=== PATIENT | male | born 1975 | race Caucasian/White ===

== ENCOUNTER 2016-08-01 10:38 | Emergency (ER) | payer BC ==
[2016-08-01 13:16] VITALS: BP 137/75
--- NOTE | 2016-08-01 13:47 | UC ---
FLU HPI - HPI Summary HPI Summary: 41 year old male with complaints of sudden onset of body aches, fever,chills, sweats, cough, headache x 5 days. Today nausea, vomit x 1 and diarrhea x 1 - History of Current Complaint Chief Complaint: UCGeneralIllness Stated Complaint: CONGESTION/SORE THROAT/VOMITING Time Seen by Provider: 08/01/16 13:08 Hx Obtained From: Patient Onset/Duration: Sudden Onset, Lasting Days - 5, Still Present Severity Currently: Moderate Severity Initially: Severe Associated Signs & Symptoms: Positive: Fever, Myalgia, Cough, Sore Throat, Nasal Congestion, Headache, Vomiting, Diarrhea Related Hx: Possible Flu/Infectious Exposure - Risk Factors Influenza Risk Factors: Negative - Allergy/Home Medications Allergies/Adverse Reactions: Allergies Allergy/AdvReac Type Severity Reaction Status Date / Time Cefepime Allergy Severe Fever, Verified 08/01/16 13:17 MYALGIA Daptomycin [From Cubicin] Allergy Severe FEVER, Verified 08/01/16 13:17 MYALGIAS Linezolid [From Zyvox] Allergy Severe RASH, Verified 08/01/16 13:17 FEVER, SWEAT, TACHYCARDIA Home Medications: Home Medications [id number] [Mucinex Fast-Max Day/Nigh] 2 cap PO Q4H PRN [History Confirmed 08/01/16] PMH/Surg Hx/FS Hx/Imm Hx Previously Healthy: Yes Endocrine History Of: Denies: Diabetes, Thyroid Disease Cardiovascular History Of: Denies: Cardiac Disorders, Hypertension, Pacemaker/ICD Respiratory History Of: Denies: COPD, Asthma GI/ History Of: Denies: Ulcer - Surgical History Surgical History: Yes Surgery Procedure, Year, and Place: 10/2011, LEFT SHOULDER, [facility]. 03/28 LEFT SHOULDER. 2005, LEFT KNEE, [facility]. 2012 left shoulder - Family History Known Family History: Positive: Hypertension Negative: Diabetes - Social History Occupation: Employed Full-time Lives: With Family Alcohol Use: Weekly Alcohol Amount: WEEKENDS Substance Use Type: None Smoking Status (MU): Current Every Day Smoker Type: Smokeless Tobacco Amount Used/How Often: 3-4 plugs a day Have You Smoked in the Last Year: Yes Cessation Counseling: Patient Advised to Stop - Immunization History Most Recent Influenza Vaccination: February 2016 Review of Systems Constitutional: Fever, Chills Skin: Negative Eyes: Negative ENT: Sore Throat - after vomiting today, Ear Ache - when blowing his nose, Nasal Discharge, Other Respiratory: Cough Cardiovascular: Negative Gastrointestinal: Vomiting, Diarrhea Genitourinary: Negative Motor: Negative Neurovascular: Negative Musculoskeletal: Myalgia Neurological: Headache Psychological: Negative All Other Systems Reviewed And Are Negative: Yes Physical Exam Triage Information Reviewed: Yes Appearance: No Pain Distress, Well-Nourished, Ill-Appearing - mild Vital Signs: Initial Vital Signs Temp 99 F 08/01/16 13:10 Pulse 104 08/01/16 13:10 Resp 18 08/01/16 13:10 BP 137/75 08/01/16 13:10 Pulse Ox 97 08/01/16 13:10 Vital Signs Reviewed: Yes Eyes: Positive: Conjunctiva Clear. Negative: Discharge ENT: Positive: Pharynx normal, Nasal congestion, Nasal drainage - thick white, TM dull - bilateral fluid, Other: - mild maxillary sinus pain with palpation. Negative: Pharyngeal erythema, Tonsillar swelling Neck: Positive: Supple, Nontender, No Lymphadenopathy Respiratory: Positive: Lungs clear, Normal breath sounds. Negative: Crackles, Wheezing Cardiovascular: Positive: RRR, No Murmur Abdomen Description: Positive: Nontender, No Organomegaly, Soft. Negative: CVA Tenderness (R), CVA Tenderness (L), Distended, Guarding Musculoskeletal: Positive: Strength Intact, ROM Intact Neurological: Positive: Alert, Muscle Tone Normal Psychological: Positive: Age Appropriate Behavior - pleasant and cooperative Skin: Negative: rashes, breakdown Flu Course/Dx - Differential Dx/Diagnosis Differential Diagnosis/HQI/PQRI: Influenza, Other - sinusitis Provider Diagnoses: Influenza. Bilateral Serous Otitis. Sinusitis Discharge - Discharge Plan Condition: Stable Disposition: HOME Prescriptions: Amoxicillin/Clavulanate TAB* [Augmentin TAB 875*] 875 mg PO BID #20 tab Patient Education Materials: Influenza (ED), Serous Otitis Media (ED), Sinusitis (ED) Forms: *Work Release Additional Instructions: You have the flu - this may be the source of all your symptoms. Continue taking the over the counter medication that are giving you mild temporary relief of your symptoms. If you are not improving by Saturday or you become worse you may start the antibiotic for the suspected sinus infection
== END 2016-08-01 14:40 | disposition home or self-care (01) ==
LOC: UCCORT 10:38
DX: J11.1 Influenza due to unidentified influenza virus with other respiratory manifestations (principal); J32.0 Chronic maxillary sinusitis; H65.93 Unspecified nonsuppurative otitis media, bilateral; F17.220 Nicotine dependence, chewing tobacco, uncomplicated; Z71.6 Tobacco abuse counseling; Z88.1 Allergy status to other antibiotic agents
CPT/HCPCS: 99212; G0463

== ENCOUNTER 2016-12-16 18:21 | Emergency (ER) | payer BC ==
[2016-12-16 18:32] VITALS: BP 129/84
--- NOTE | 2016-12-16 18:38 | UC ---
Cardiac HPI - History of Current Complaint Chief Complaint: UCChestPain Stated Complaint: LEFT SHOULDER PAIN,SWEATING,TINGLING IN LEFT HAND Time Seen by Provider: 12/16/16 18:33 Hx Obtained From: Patient Onset/Duration: Sudden Onset - awoke with left shoulder pain and felt off with fever. Has sweats nausea and vomiting this morning., Still Present Initial Severity: Moderate Current Severity: Moderate Chest Pain Location: Left Anterior Character: Sharp/Stabbing - intermittant Aggravating: Nothing Alleviating: Nothing Associated Signs & Symptoms: Positive: Chest Pain, Tingling - in the left hand, Weakness, Diaphoresis, Nausea/Vomiting. Negative: SOB - Risk Factors Pulmonary Embolism Risk Factors: Negative Cardiac Risk Factors: Negative - Allergy/Home Medications Allergies/Adverse Reactions: Allergies Allergy/AdvReac Type Severity Reaction Status Date / Time Cefepime Allergy Severe Fever, Verified 12/16/16 18:33 MYALGIA Daptomycin [From Cubicin] Allergy Severe FEVER, Verified 12/16/16 18:33 MYALGIAS Linezolid [From Zyvox] Allergy Severe RASH, Verified 12/16/16 18:33 FEVER, SWEAT, TACHYCARDIA Home Medications: Home Medications Ibuprofen TAB* [Advil TAB*] 800 mg PO Q6H PRN 12/16/16 [History Confirmed ] PMH/Surg Hx/FS Hx/Imm Hx Previously Healthy: Yes - Surgical History Surgical History: Yes Surgery Procedure, Year, and Place: 10/2011, LEFT SHOULDER, [facility]. 03/28 LEFT SHOULDER. 2005, LEFT KNEE, [facility]. 2012 left shoulder - Family History Known Family History: Positive: Hypertension Negative: Cardiac Disease, Diabetes - Social History Occupation: Employed Full-time Lives: With Family Alcohol Use: Occasionally Alcohol Amount: WEEKENDS Substance Use Type: None Smoking Status (MU): Former Smoker Type: Smokeless Tobacco Amount Used/How Often: 3-4 plugs a day Length of Time of Smoking/Using Tobacco: 19 YRS Have You Smoked in the Last Year: Yes - Immunization History Most Recent Influenza Vaccination: February 2016 Review of Systems Constitutional: Fatigue Cardiovascular: Chest Pain Gastrointestinal: Vomiting, Nausea Musculoskeletal: Arthralgia - left shoulder Neurological: Paresthesia - left hand. All Other Systems Reviewed And Are Negative: Yes Physical Exam Triage Information Reviewed: Yes Appearance: Well-Appearing, No Pain Distress, Well-Nourished Vital Signs: Initial Vital Signs Temp 98 F 12/16/16 18:28 Pulse 81 12/16/16 18:28 Resp 17 12/16/16 18:28 BP 129/84 12/16/16 18:28 Pulse Ox 96 12/16/16 18:28 Vital Signs Reviewed: Yes Eyes: Positive: Conjunctiva Clear ENT: Positive: Pharynx normal, TMs normal Neck exam: Normal Respiratory: Positive: Chest non-tender, Lungs clear Cardiovascular Exam: Normal Abdomen Description: Positive: Nontender, No Organomegaly, Soft Bowel Sounds: Positive: Present Musculoskeletal: Positive: Strength Limited @ - left shoulder exernal rotation with mild pain. Neurological: Positive: Other: - positive tinels left wrist. Sensation normal to sharp on the left hand and the face. Psychological Exam: Normal Skin Exam: Normal - Differential Diagnoses - Chest Pain Differential Diagnosis/HQI/PQRI: ACS, Chest Wall, GI Disease - Clinical Impression Provider Diagnoses: Chest wall pain. viral syndrome. Left shoulder pain. Left carpal tunnel syndrome Discharge - Discharge Plan Condition: Stable Disposition: HOME Patient Education Materials: Chest Pain (ED), Paresthesia (ED), Viral Syndrome (ED) Referrals: Belkis Tejada NP [Primary Care Provider] - 4 Days (recheck the blood pressure.)
== END 2016-12-16 19:07 | disposition home or self-care (01) ==
LOC: UCCORT 18:21
DX: R07.89 Other chest pain (principal); B34.9 Viral infection, unspecified; M25.512 Pain in left shoulder; G56.02 Carpal tunnel syndrome, left upper limb
CPT/HCPCS: 93005; 99211; G0463

== ENCOUNTER 2017-09-23 17:00 | Inpatient (IN) | payer BC ==
[2017-09-23 18:50] LABS: ABS Basophils 0.1 10^3/ul (0-0.2); ABS Eosinophils 0.1 10^3/ul (0-0.6); ABS Lymphocytes 1.4 10^3/ul (1.0-4.8); ABS Monocytes 0.7 10^3/ul (0-0.8); ABS Neutrophils 12.3 10^3/ul (1.5-7.7); ABS Nucleated RBC 0 10^3/ul; Hematocrit 43 % (42-52); Hemoglobin 14.6 g/dl (14.0-18.0); Lymphocyte % 9.4 % (25-47); Mean Corpuscular HGB Conc 34 g/dl (31-36); Mean Corpuscular Hemoglobin 30 pg (27-31); Mean Corpuscular Volume 88 fL (80-94); Mean Platelet Volume 7.8 um3 (7.4-10.4); Nucleated Red Blood Cells % 0; Platelet Count 286 10^3/ul (150-450); Red Blood Count 4.88 10^6/ul (4.0-5.4); Red Cell Distribution Width 14 % (10.5-15); White Blood Count 14.6 10^3/ul (3.5-10.8)
[2017-09-23 19:07] LABS: EGFR Non-African American 84.7 (>60)
--- NOTE | 2017-09-23 19:18 | RAD ---
INDICATION: RIGHT groin and lower abdominal pain following lifting injury. COMPARISON: No relevant prior exams available on the [facility] for comparison. TECHNIQUE: Multidetector CT images were obtained from the lung bases to the ischial tuberosities. Evaluation of the viscera is limited without IV contrast. Multiplanar reformation. REPORT: Unremarkable visualized inferior thorax. The liver, gallbladder, pancreas, and spleen are unremarkable. Small splenule at the splenic hilum. Medially directed diverticulum at the second segment of the duodenum without suggestion of inflammatory change. Unremarkable jejunum, ileum, and retrocecal appendix. Mild colonic diverticulosis. Perienteric inflammatory change at the level of the proximal segment of the sigmoid colon with a few foci of extra enteric gas and small volume of free pelvic fluid including along the LEFT pelvic sidewall and in the dependent portion. Negative for significant hernias. Normal adrenal glands. Unremarkable kidneys. Negative for obstructive uropathy. Unremarkable nondilated ureters and partially distended urinary bladder. Symmetric seminal vesicles. Negative for lymphadenopathy. Normal diameter abdominal aorta and iliac arteries. Partially decompressed inferior vena cava indicating lower volume state. Negative for suspicious osseous lesions. IMPRESSION: The constellation of findings is most consistent with acute diverticulitis of the proximal sigmoid colon with evidence for perforation with small foci of extra enteric gas and small volume of free fluid. No loculated abscess collection evident. Reassessment after therapy suggested to assess for resolution.
[2017-09-23 19:31] LABS: Urine Appearance Clear; Urine Blood Negative (Negative); Urine Color Yellow; Urine Ketones Negative (Negative); Urine Protein Negative (Negative); Urine Specific Gravity 1.016 (1.010-1.030); Urine Urobilinogen Negative (Negative)
[2017-09-23] MEDS ORDERED: Ciprofloxacin 400MG IVPREMIX(* 400 MG/200 ML BAG IVPB ONE (20:10)
[2017-09-23] MEDS ORDERED: metroNIDAZOLE IV 500 MG/100ML* 500 MG/100 ML BAG IVPB ONE (20:10)
--- NOTE | 2017-09-23 20:28 | HP ---
H&P (Free Text) History and Physical: PCP: Angelica Tejada NP Date/Time: 09/23/20172019 CC: abdominal pain HPI: Mr Jolly is a 42YO male healthy male presents with onset of sharp RLQ pain radiating to R groin associated with F/C & sweats. Pain began shortly after cleaning under a sectional sofa, no heavy lifting. Afterwards, he felt the need to defecate, but couldn't. Straining to defecate increased pain and caused the radiation to R groin. Last BM was this afternoon, described as normal. Pain continued to increase and convinced him to come for evaluation. PMedHx negative Ambulatory Orders Ibuprofen TAB* [Advil TAB*] 800 mg PO Q6H PRN 12/16/16 Allergies cefepime Allergy (Verified 09/23/17 17:11) Fever daptomycin [From Cubicin] Allergy (Verified 09/23/17 17:11) Fever linezolid [From Zyvox] Allergy (Verified 09/23/17 17:11) Rash PSurgHx L shoulder surgery x3 L knee arthroscopy SocHx: 1 can smokeless tobacco every 2-3 days, 6-10 beers/weekend, denies recreational drugs; lives with & 2 children; works for [employer]; full code status FamHx: Mother & Father: alive & healthy; single brother: healthy: single sister : developmentally disabled ROS: as above, otherwise reviewed and all were negative vitals: Vital Signs Temp 36.8 C 09/23/17 17:11 Pulse 88 09/23/17 17:11 Resp 20 09/23/17 17:11 BP 130/84 09/23/17 17:11 Pulse Ox 94 09/23/17 17:11 Intake & Output 09/22/17 09/23/17 09/23/17 23:59 11:59 23:59 Weight 113.398 kg Constitutional: NAD, normally developed, obese white male HEENM: atraumatic; sclera/conjunctiva: anicteric/clear; hearing: clinically intact; oropharynx: clear, moist Neck: soft tissue: non-tender; thyroid: normal Pulmonary: clear to auscultation bilaterally, good aeration, no accessory muscle use CV: RR/RR, normal S1S2, no carotid bruit, no jugular venous distention, 2+ B DP/ PT, no edema Abdominal: soft, non-distended, non-tender, no rebound/guarding/rigidity, normoactive bowel sounds, no hepatosplenomegaly or masses, no costovertebral angle tenderness Musculoskeletal: general: grossly intact, no tenderness w/ palpation Integumental: normal appearance and texture of exposed skin Psychiatric orientation: AA&O to PPS affect: calm mood: pleasant eye contact: good content: reliable responses: timely insight: good Testing: Lab Results 09/23/17 09/23/17 09/23/17 Range/Units 18:28 18:28 18:28 WBC 14.6 H (3.5-10.8) 10^3/ul RBC 4.88 (4.0-5.4) 10^6/ul Hgb 14.6 (14.0-18.0) g/dl Hct 43 (42-52) % MCV 88 (80-94) fL MCH 30 (27-31) pg MCHC 34 (31-36) g/dl RDW 14 (10.5-15) % Plt Count 286 (150-450) 10^3/ul MPV 7.8 (7.4-10.4) um3 Neut % (Auto) 84.6 H (38-83) % Lymph % (Auto) 9.4 L (25-47) % [place] % (Auto) 4.6 (0-7) % Eos % (Auto) 1.0 (0-6) % Baso % (Auto) 0.4 (0-2) % Absolute Neuts (auto) 12.3 H (1.5-7.7) 10^3/ul Absolute Lymphs (auto) 1.4 (1.0-4.8) 10^3/ul Absolute Monos (auto) 0.7 (0-0.8) 10^3/ul Absolute Eos (auto) 0.1 (0-0.6) 10^3/ul Absolute Basos (auto) 0.1 (0-0.2) 10^3/ul Absolute Nucleated RBC 0 10^3/ul Nucleated RBC % 0 Sodium 137 L (139-145) mmol/L Potassium 4.0 (3.5-5.0) mmol/L Chloride 104 (101-111) mmol/L Carbon Dioxide 26 (22-32) mmol/L Anion Gap 7 (2-11) mmol/L BUN 14 (6-24) mg/dL Creatinine 0.98 (0.67-1.17) mg/dL Est GFR ( Amer) 108.9 (>60) Est GFR (Non-Af Amer) 84.7 (>60) BUN/Creatinine Ratio 14.3 (8-20) Glucose 121 H (70-100) mg/dL Lactic Acid 1.2 (0.5-2.0) mmol/L Calcium 9.1 (8.6-10.3) mg/dL Total Bilirubin 0.50 (0.2-1.0) mg/dL AST 20 (13-39) U/L ALT 35 (7-52) U/L Alkaline Phosphatase 64 (34-104) U/L C-Reactive Protein 4.58 (< 5.00) mg/L Total Protein 6.9 (6.4-8.9) g/dL Albumin 4.2 (3.2-5.2) g/dL Globulin 2.7 (2-4) g/dL Albumin/Globulin Ratio 1.6 (1-3) Lipase 11 (11.0-82.0) U/L Urine Color Urine Appearance Urine pH (5-9) Ur Specific [place] (1.010-1.030) Urine Protein (Negative) Urine Ketones (Negative) Urine Blood (Negative) Urine Nitrate (Negative) Urine Bilirubin (Negative) Urine Urobilinogen (Negative) Ur Leukocyte Esterase (Negative) Urine Glucose (Negative) 09/23/17 Range/Units 19:18 WBC (3.5-10.8) 10^3/ul RBC (4.0-5.4) 10^6/ul Hgb (14.0-18.0) g/dl Hct (42-52) % MCV (80-94) fL MCH (27-31) pg MCHC (31-36) g/dl RDW (10.5-15) % Plt Count (150-450) 10^3/ul MPV (7.4-10.4) um3 Neut % (Auto) (38-83) % Lymph % (Auto) (25-47) % [place] % (Auto) (0-7) % Eos % (Auto) (0-6) % Baso % (Auto) (0-2) % Absolute Neuts (auto) (1.5-7.7) 10^3/ul Absolute Lymphs (auto) (1.0-4.8) 10^3/ul Absolute Monos (auto) (0-0.8) 10^3/ul Absolute Eos (auto) (0-0.6) 10^3/ul Absolute Basos (auto) (0-0.2) 10^3/ul Absolute Nucleated RBC 10^3/ul Nucleated RBC % Sodium (139-145) mmol/L Potassium (3.5-5.0) mmol/L Chloride (101-111) mmol/L Carbon Dioxide (22-32) mmol/L Anion Gap (2-11) mmol/L BUN (6-24) mg/dL Creatinine (0.67-1.17) mg/dL Est GFR ( Amer) (>60) Est GFR (Non-Af Amer) (>60) BUN/Creatinine Ratio (8-20) Glucose (70-100) mg/dL Lactic Acid (0.5-2.0) mmol/L Calcium (8.6-10.3) mg/dL Total Bilirubin (0.2-1.0) mg/dL AST (13-39) U/L ALT (7-52) U/L Alkaline Phosphatase (34-104) U/L C-Reactive Protein (< 5.00) mg/L Total Protein (6.4-8.9) g/dL Albumin (3.2-5.2) g/dL Globulin (2-4) g/dL Albumin/Globulin Ratio (1-3) Lipase (11.0-82.0) U/L Urine Color Yellow Urine Appearance Clear Urine pH 5.0 (5-9) Ur Specific [place] 1.016 (1.010-1.030) Urine Protein Negative (Negative) Urine Ketones Negative (Negative) Urine Blood Negative (Negative) Urine Nitrate Negative (Negative) Urine Bilirubin Negative (Negative) Urine Urobilinogen Negative (Negative) Ur Leukocyte Esterase Negative (Negative) Urine Glucose Negative (Negative) CXR, personally reviewed: IMPRESSION: The constellation of findings is most consistent with acute diverticulitis of the proximal sigmoid colon with evidence for perforation with small foci of extra enteric gas and small volume of free fluid. No loculated abscess collection evident. Reassessment after therapy suggested to assess for resolution. Impression: 42M presenting with acute microperforated diverticulitis DIAGNOSIS & PLAN Primary acute microperforated diverticulitis : IVFs : IV ciprofloxacin & metronidazole : Cheli Amador MD surgery consulted by ED, will arrange follow up inpatient : Benito Blandon MD GI consulted by ED, will arrange follow up : blood CXs : pain control : supplemental oxygen : supportive care Admission Rational: inpatient for acute microperforated diverticulitis requiring IVFs & IV ABX in patient at risk for rapid clinical deterioration DVTp: SCDs Code Status: full HCP:
[2017-09-23] MEDS ORDERED: Acetaminophen TAB* 325 MG PO PRN (20:37)
[2017-09-23] MEDS ORDERED: LORazepam INJ* 2 MG/ML 1 ML VIAL IV PRN (20:38)
[2017-09-23] MEDS ORDERED: Albuterol 2.5 MG/3 ML NEB.SOL* (0.083%) INH PRN (20:38)
--- NOTE | 2017-09-23 20:58 | ED ---
Anish Butler Rebecca, scribed for Roosevelt Myrick MD on 09/23/17 at 1752 . Abdominal Pain/Male - HPI Summary HPI Summary: Pt is a 42 y/o M who presents to ED c/o RLQ pain. Sx began today at approximately 1430 while cleaning under his sectional. Pain is currently mild, ranked 3/10. When urinating, the pain radiated into the inguinal region. Sx aggravated by movement, palpation, and driving over bumps, alleviated by raising his RUE. 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 Denies nausea. Denies heavy lifting at the onset of pain. - History of Current Complaint Chief Complaint: EDAbdPain Stated Complaint: ABD PAIN Time Seen by Provider: 09/23/17 17:45 Hx Obtained From: Patient Onset/Duration: Lasting Hours, Still Present Severity Currently: Mild Pain Intensity: 3 Pain Scale Used: 0-10 Numeric Location: Discrete At: RLQ Radiates: Yes Radiates to: Inguinal - When urinating Aggravating Factor(s): Movement, Other: - Driving over bumps, palpation Alleviating Factor(s): Other: - Raising the RUE Associated Signs And Symptoms: Negative: Nausea - Allergies/Home Medications Allergies/Adverse Reactions: Allergies Allergy/AdvReac Type Severity Reaction Status Date / Time cefepime Allergy Fever Verified 09/23/17 17:11 daptomycin [From Cubicin] Allergy Fever Verified 09/23/17 17:11 linezolid [From Zyvox] Allergy Rash Verified 09/23/17 17:11 PMH/Surg Hx/FS Hx/Imm Hx Endocrine/Hematology History: Denies: Hx Diabetes, Hx Sickle Cell Disease, Hx Thyroid Disease Cardiovascular History: Denies: Hx Hypertension, Hx Pacemaker/ICD, Other Cardiovascular Problems/ Disorders Respiratory History: Denies: Hx Asthma, Hx Chronic Obstructive Pulmonary Disease (COPD), Other Respiratory Problems/Disorders GI History: Reports: Hx Gastroesophageal Reflux Disease - TAKES OTC MEDICATION Denies: Hx Ulcer History: Denies: Other Problems/Disorders Musculoskeletal History: Denies: Other Musculoskeletal History Sensory History: Denies: Hx Contacts or Glasses, Hx Hearing Aid Opthamlomology History: Denies: Hx Contacts or Glasses Neurological History: Denies: Other Neuro Impairments/Disorders Psychiatric History: Denies: Hx Panic Disorder - Surgical History Surgery Procedure, Year, and Place: 10/2011, LEFT SHOULDER, [facility]. 03/28 LEFT SHOULDER. 2005, LEFT KNEE, [facility]. 2012 left shoulder Hx Anesthesia Reactions: No Infectious Disease History: No Infectious Disease History: Denies: Hx Hepatitis, Hx Human Immunodeficiency Virus (HIV), Traveled Outside the [place] in Last 30 Days - Family History Known Family History: Positive: Hypertension Negative: Cardiac Disease, Diabetes - Social History Alcohol Use: Occasionally Alcohol Amount: WEEKENDS Substance Use Type: Reports: None Smoking Status (MU): Former Smoker Type: Smokeless Tobacco Amount Used/How Often: 3-4 plugs a day Length of Time of Smoking/Using Tobacco: 19 YRS Have You Smoked in the Last Year: Yes Review of Systems Negative: Fever Positive: Abdominal Pain. Negative: Nausea Positive: other - Difficulty urinating All Other Systems Reviewed And Are Negative: Yes Physical Exam - Summary Physical Exam Summary: Appearance: The patient is well-nourished in no acute distress and in no acute pain. Skin: The skin is warm and dry and skin color reflects adequate perfusion. HEENT: The head is normocephalic and atraumatic. The pupils are equal and reactive. The conjunctivae are clear and without drainage. Nares are patent and without drainage. Mouth reveals moist mucous membranes and the throat is without erythema and exudate. The external ears are intact. The ear canals are patent and without drainage. The tympanic membranes are intact. Neck: the neck is supple with full range of motion and non-tender. There are no carotid bruits. There is no neck vein distension. Respiratory: Chest is non-tender. Lungs are clear to auscultation and breath sounds are symmetrical and equal. Cardiovascular: Heart is regular rate and rhythm. There is no murmur or rub auscultated. There is no peripheral edema and pulses are symmetrical and equal. Abdomen: The abdomen is soft. He is tender in the RLQ with no tenderness in the right inguinal area or testicle. There are normal bowel sounds heard in all four quadrants and there is no organomegaly palpated. Negative straight leg test bilaterally. Musculoskeletal: There is no back tenderness noted. Extremities are non-tender with full range of motion. There is good capillary refill. There is no peripheral edema or calf tenderness elicited. Neurological: Patient is alert and oriented to person, place and time. The patient has symmetrical motor strength in all four extremities. Cranial nerves are grossly intact. Deep tendon reflexes are symmetrical and equal in all four extremities. Psychiatric: The patient has an appropriate affect and does not exhibit any anxiety or depression. Triage Information Reviewed: Yes Vital Signs On Initial Exam: Initial Vitals Temp Pulse Resp BP Pulse Ox 98.2 F 88 20 130/84 94 09/23/17 17:11 09/23/17 17:11 09/23/17 17:11 09/23/17 17:11 09/23/17 17:11 Vital Signs Reviewed: Yes Diagnostics - Vital Signs Vital Signs Temp Pulse Resp BP Pulse Ox 09/23/17 17:11 98.2 F 88 20 130/84 94 - Laboratory Lab Results: Lab Results 09/23/17 09/23/17 09/23/17 Range/Units 18:28 18:28 18:28 WBC 14.6 H (3.5-10.8) 10^3/ul RBC 4.88 (4.0-5.4) 10^6/ul Hgb 14.6 (14.0-18.0) g/dl Hct 43 (42-52) % MCV 88 (80-94) fL MCH 30 (27-31) pg MCHC 34 (31-36) g/dl RDW 14 (10.5-15) % Plt Count 286 (150-450) 10^3/ul MPV 7.8 (7.4-10.4) um3 Neut % (Auto) 84.6 H (38-83) % Lymph % (Auto) 9.4 L (25-47) % [place] % (Auto) 4.6 (0-7) % Eos % (Auto) 1.0 (0-6) % Baso % (Auto) 0.4 (0-2) % Absolute Neuts (auto) 12.3 H (1.5-7.7) 10^3/ul Absolute Lymphs (auto) 1.4 (1.0-4.8) 10^3/ul Absolute Monos (auto) 0.7 (0-0.8) 10^3/ul Absolute Eos (auto) 0.1 (0-0.6) 10^3/ul Absolute Basos (auto) 0.1 (0-0.2) 10^3/ul Absolute Nucleated RBC 0 10^3/ul Nucleated RBC % 0 Sodium 137 L (139-145) mmol/L Potassium 4.0 (3.5-5.0) mmol/L Chloride 104 (101-111) mmol/L Carbon Dioxide 26 (22-32) mmol/L Anion Gap 7 (2-11) mmol/L BUN 14 (6-24) mg/dL Creatinine 0.98 (0.67-1.17) mg/dL Est GFR ( Amer) 108.9 (>60) Est GFR (Non-Af Amer) 84.7 (>60) BUN/Creatinine Ratio 14.3 (8-20) Glucose 121 H (70-100) mg/dL Lactic Acid 1.2 (0.5-2.0) mmol/L Calcium 9.1 (8.6-10.3) mg/dL Total Bilirubin 0.50 (0.2-1.0) mg/dL AST 20 (13-39) U/L ALT 35 (7-52) U/L Alkaline Phosphatase 64 (34-104) U/L C-Reactive Protein 4.58 (< 5.00) mg/L Total Protein 6.9 (6.4-8.9) g/dL Albumin 4.2 (3.2-5.2) g/dL Globulin 2.7 (2-4) g/dL Albumin/Globulin Ratio 1.6 (1-3) Lipase 11 (11.0-82.0) U/L Urine Color Urine Appearance Urine pH (5-9) Ur Specific [place] (1.010-1.030) Urine Protein (Negative) Urine Ketones (Negative) Urine Blood (Negative) Urine Nitrate (Negative) Urine Bilirubin (Negative) Urine Urobilinogen (Negative) Ur Leukocyte Esterase (Negative) Urine Glucose (Negative) 09/23/17 Range/Units 19:18 WBC (3.5-10.8) 10^3/ul RBC (4.0-5.4) 10^6/ul Hgb (14.0-18.0) g/dl Hct (42-52) % MCV (80-94) fL MCH (27-31) pg MCHC (31-36) g/dl RDW (10.5-15) % Plt Count (150-450) 10^3/ul MPV (7.4-10.4) um3 Neut % (Auto) (38-83) % Lymph % (Auto) (25-47) % [place] % (Auto) (0-7) % Eos % (Auto) (0-6) % Baso % (Auto) (0-2) % Absolute Neuts (auto) (1.5-7.7) 10^3/ul Absolute Lymphs (auto) (1.0-4.8) 10^3/ul Absolute Monos (auto) (0-0.8) 10^3/ul Absolute Eos (auto) (0-0.6) 10^3/ul Absolute Basos (auto) (0-0.2) 10^3/ul Absolute Nucleated RBC 10^3/ul Nucleated RBC % Sodium (139-145) mmol/L Potassium (3.5-5.0) mmol/L Chloride (101-111) mmol/L Carbon Dioxide (22-32) mmol/L Anion Gap (2-11) mmol/L BUN (6-24) mg/dL Creatinine (0.67-1.17) mg/dL Est GFR ( Amer) (>60) Est GFR (Non-Af Amer) (>60) BUN/Creatinine Ratio (8-20) Glucose (70-100) mg/dL Lactic Acid (0.5-2.0) mmol/L Calcium (8.6-10.3) mg/dL Total Bilirubin (0.2-1.0) mg/dL AST (13-39) U/L ALT (7-52) U/L Alkaline Phosphatase (34-104) U/L C-Reactive Protein (< 5.00) mg/L Total Protein (6.4-8.9) g/dL Albumin (3.2-5.2) g/dL Globulin (2-4) g/dL Albumin/Globulin Ratio (1-3) Lipase (11.0-82.0) U/L Urine Color Yellow Urine Appearance Clear Urine pH 5.0 (5-9) Ur Specific [place] 1.016 (1.010-1.030) Urine Protein Negative (Negative) Urine Ketones Negative (Negative) Urine Blood Negative (Negative) Urine Nitrate Negative (Negative) Urine Bilirubin Negative (Negative) Urine Urobilinogen Negative (Negative) Ur Leukocyte Esterase Negative (Negative) Urine Glucose Negative (Negative) Result Diagrams: 09/23/17 18:28 09/23/17 18:28 Lab Statement: Any lab studies that have been ordered have been reviewed, and results considered in the medical decision making process. - CT CT Abd/Pel CT Interpretation Completed By: Radiologist - The constellation of findings is most consistent with acute diverticulitis of the proximal sigmoid colon with evidence for perforation with small foci of extra enteric gas and small volume of free fluid. No loculated abscess collection evident. Reassessment after therapy suggested to assess for resolution. ED physician reviewed this radiology report. Re-Evaluation - Re-Evaluation First Eval Re-Evaluation Time: 20:12 Comment: Patient continues to be in pain, though he refuses pain medication. Discussed admission, which he is alright with. Abdominal Pain Fem Course/Dx - Course Course Of Treatment: Surprisingly, Mr. Jolly was found to have diverticulitis with perforation. Dr. Amaro and Dr. Hickey both felt that he needed to be admitted for IV ABX and will consult for the hospitalist service. - Diagnoses Provider Diagnoses: Diverticulitis of colon with perforation - Provider Notifications Discussed Care Of Patient With: Evan Amaro Time Discussed With Above Provider: 20:08 Instructed by Provider To: Other - Advised admission to hospitalist services. Discussed care of pt with Dr. Zendejas at 2017 who advised a surgical consult. Discussed care of pt with Dr. Rom Amador at 2030 who will consult on thepatient, though he needs to be admitted for IV Abx. Discussed care of pt with Dr. Constantin Zendejas again at 2031 who accepts pt for admission. Discharge - Sign-Out/Discharge Documenting (check all that apply): Discharge - Admitted - Discharge Plan Condition: Stable Disposition: ADMITTED TO [facility] Referrals: Belkis Tejada, KARL [Primary Care Provider] - - Billing Disposition and Condition Condition: STABLE Disposition: [facility] [place] The documentation as recorded by the Anish borrero Rebecca accurately reflects the service I personally performed and the decisions made by me, Roosevelt Myrick MD.
[2017-09-23] MEDS: NS 0.9% 1000 ML* 1,000 ML IV SCH (21:13)
[2017-09-23] MEDS: HYDROmorphone INJ* 2 MG/ML CARPUJECT SYRINGE IV PRN ×2 (22:04→23:40)
[2017-09-23] MEDS: Ondansetron INJ* 2 MG/ML VIAL IV PRN (22:25)
--- NOTE | 2017-09-24 00:32 | CONS ---
CC: [facility]; Belkis Tejada NP * CONSULTATION REPORT: DATE OF CONSULT: 09/23/17 REFERRING PROVIDER: Ashkan Zendejas MD, hospitalist. REASON FOR CONSULTATION: Diverticulitis. HISTORY OF PRESENT ILLNESS: Mr. Sg Jolly is a healthy 42-year-old gentleman , who developed some suprapubic and left lower quadrant abdominal discomfort over the course of today. He had been moving some heavy objects later in the day and the pain became more severe and he felt this was related to the heavy lifting. He presented tot he emergency room. He did have some associated sweats. He felt somewhat distended with nausea, but no vomiting. There were no shakes or chills. He was seen in the emergency room today. He was noted to have an elevated white blood cell count of 14,000. He underwent a CAT scan of the abdomen and pelvis. I did review these images. These show what appears to be a proximal sigmoid diverticulitis with a few small bubbles of extraluminal air consistent with perforation. There was no abscess. There is a small amount of free fluid in the pelvis, but no remote free air or other acute abnormality. He has been admitted to the medical service and a surgical consultation was obtained. PAST MEDICAL HISTORY: Unremarkable. PAST SURGICAL HISTORY: Left shoulder surgery x3, left knee arthroscopy. MEDICATIONS: None. ALLERGIES: To CEFEPIME, DAPTOMYCIN, and ZYVOX. SOCIAL HISTORY: He uses 1 can of smokeless tobacco every 2 to 3 days. He drinks 6 to 10 beers on a weekend. He does not use recreational drugs. He lives with a and 2 young children. He works at the [employer]. REVIEW OF SYSTEMS: Cerebrovascular: He has had no dizziness or visual disturbances. Cardiovascular: No chest pain or shortness of breath. Pulmonary : No wheezing or hemoptysis. GI: As per above. He has never had a colonoscopy. : No urgency or hematuria. PHYSICAL EXAM: Temperature 99.1, pulse 95, blood pressure 134/65, respirations 16. In general, he is a well-developed, slightly overweight male, with normal attention to grooming. Face is slightly flushed. His lungs were clear to auscultation with normal respiratory effort. Heart was with regular rate and rhythm without murmurs, rubs or gallops. Abdomen is soft, nondistended. He has diminished bowel sounds throughout. There are no prior surgical incisions or hernias. He has tenderness in the suprapubic and left lower quadrant area. There is some voluntary guarding. There is no generalized discomfort or peritonitis. LABORATORY DATA: Included a white blood cell count of 14,000. Lactic acid 1.2. His C-reactive protein is 4.58. Electrolytes, BUN and creatinine were all within normal limits. IMPRESSION: Sigmoid diverticulitis with a all amount of extraluminal air consistent with acute perforation with the clinical history as described above. He has mildly elevated white blood cell count. He has tenderness in the left lower quadrant. He has no generalized peritoneal irritation and there are no indications for acute surgical intervention at this point. He has been started on ciprofloxacin and Flagyl and IV analgesia. He will need to be followed closely over the next 48 to 72 hours. If his symptoms worsen, I will consider a repeat CT scan to rule out abscess. I discussed all of this with him including the possibility of emergent surgical intervention if his clinical course deteriorates or he does not improve with IV antibiotics over the next several days. Thank you very much for this consultation. We will follow him closely with you. [id number]/[facility] #: [id number] HORACIO
[2017-09-24] MEDS: HYDROmorphone INJ* 2 MG/ML CARPUJECT SYRINGE IV PRN ×6 (04:33→21:47)
[2017-09-24] MEDS: NS 0.9% 1000 ML* 1,000 ML IV SCH ×2 (06:27→19:13)
[2017-09-24] MEDS: metroNIDAZOLE IV 500 MG/100ML* 500 MG/100 ML BAG IVPB SCH ×3 (06:27→22:33)
[2017-09-24 06:36] LABS: ABS Basophils 0 10^3/ul (0-0.2); ABS Eosinophils 0.1 10^3/ul (0-0.6); ABS Lymphocytes 1.2 10^3/ul (1.0-4.8); ABS Monocytes 0.7 10^3/ul (0-0.8); ABS Neutrophils 7.2 10^3/ul (1.5-7.7); ABS Nucleated RBC 0 10^3/ul; Eosinophil % 1.2 % (0-6); Hematocrit 38 % (42-52); Hemoglobin 13.1 g/dl (14.0-18.0); Lymphocyte % 12.9 % (25-47); Mean Corpuscular HGB Conc 34 g/dl (31-36); Mean Corpuscular Hemoglobin 30 pg (27-31); Mean Corpuscular Volume 88 fL (80-94); Mean Platelet Volume 7.5 um3 (7.4-10.4); Nucleated Red Blood Cells % 0; Platelet Count 254 10^3/ul (150-450); Red Blood Count 4.34 10^6/ul (4.0-5.4); Red Cell Distribution Width 14 % (10.5-15); White Blood Count 9.3 10^3/ul (3.5-10.8)
[2017-09-24 06:51] LABS: EGFR Non-African American 84.7 (>60)
[2017-09-24] MEDS: Ondansetron INJ* 2 MG/ML VIAL IV PRN (06:59)
[2017-09-24] MEDS ORDERED: Ciprofloxacin IV(*) 400 MG in D5W 250 ML BAG* 160 ML IVPB SCH (08:00)
[2017-09-24] MEDS: Pantoprazole IV* 40 MG IV SCH (08:53)
[2017-09-24] MEDS: Ciprofloxacin 400MG IVPREMIX(* 400 MG/200 ML BAG IVPB SCH ×2 (08:54→21:38)
--- NOTE | 2017-09-24 14:27 | PN ---
Progress Note - Progress Note Date of Service: 09/24/17 Note: Surgery Progress: S: HD #2; on Cipro/Flagyl. Better today (no pain when he is lying still; increases w/ movement). No N/v. Antonio sips H2O. Passing flatus; no BM. Current Medications Acetaminophen (Tylenol Tab*) 650 mg PO Q6H PRN PRN Reason: FEVER/PAIN Albuterol (Ventolin 2.5 Mg/3 Ml Neb.Lola*) 2.5 mg INH Q2H PRN PRN Reason: SOB/WHEEZING Hydromorphone HCl (Dilaudid Inj*) 1 mg IV Q2H PRN PRN Reason: PAIN Last Admin: 09/24/17 11:53 Dose: 1 mg Metronidazole/Sodium Chloride (Flagyl 500 Mg Ivpb*) 500 mg in 100 mls @ 100 mls /hr IVPB Q8H [facility] Last Admin: 09/24/17 06:27 Dose: 100 mls/hr Sodium Chloride (Ns 0.9% 1000 Ml*) 1,000 mls @ 125 mls/hr IV PER RATE [facility] Last Admin: 09/24/17 06:27 Dose: 125 mls/hr Ciprofloxacin/Dextrose (Cipro 400 Mg Ivpremix(*)) 400 mg in 200 mls @ 200 mls/ hr IVPB Q12H [facility] Last Admin: 09/24/17 08:54 Dose: 200 mls/hr Lorazepam (Ativan Inj*) 0.5 mg IV BEDTIME PRN PRN Reason: SLEEP Ondansetron HCl (Zofran Inj*) 4 mg IV Q6H PRN PRN Reason: NAUSEA Last Admin: 09/24/17 06:59 Dose: 4 mg Pantoprazole Sodium (Protonix Iv*) 40 mg IV DAILY [facility] Last Admin: 09/24/17 08:53 Dose: 40 mg O: Tmax 99.5; other VSS Intake and Output Last 24 Hours 09/22/17 09/23/17 09/24/17 09/25/17 06:59 06:59 06:59 06:59 Intake Total 640 0 Output Total 1300 350 Balance -660 -350 Weight 257 lb Intake: IV Fluids 200 Oral 440 0 Output: Urine 1300 350 Other: # Bowel Movements 0 # Voids 0 Gen: WN, obese; NAD Heart: reg Lungs: clear Abd: +BS; obese; distended; soft; moderate tenderness throughout hypogastrium; some firmness, but no guarding or rigidity. Labs: Laboratory Tests 09/23/17 09/24/17 09/24/17 18:28 06:15 06:15 WBC 14.6 H 9.3 Neut % (Auto) 84.6 H 77.7 Sodium 136 L Potassium 4.2 Glucose 134 H A: sigmoid diverticulitls w/ micro perf, improving P: cont IV abx; would allow clears ad catalina. We will cont to follow; no surgical indications at the present.
[2017-09-24] MEDS ORDERED: Metoclopramide IV* 5 MG/ML 2 ML VIAL IV PRN (17:42)
[2017-09-24] MEDS: Al Hydrox/Mg Hydrox/Simet LIQ* 30 ML UDC PO PRN (18:17)
--- NOTE | 2017-09-24 18:33 | PN ---
Subjective Date of Service: 09/24/17 Interval History: Patient seen and examined. Patient states abd pain is improving, but remains nauseous and bloated and tender. Passing flatus, no vomiting. Objective Active Medications: Acetaminophen (Tylenol Tab*) 650 mg PO Q6H PRN PRN Reason: FEVER/PAIN Al Hydrox/Mg Hydrox/Simethicone (Maalox Plus*) 30 ml PO Q4H PRN PRN Reason: DYSPEPSIA Last Admin: 09/24/17 18:17 Dose: 30 ml Albuterol (Ventolin 2.5 Mg/3 Ml Neb.Lola*) 2.5 mg INH Q2H PRN PRN Reason: SOB/WHEEZING Hydromorphone HCl (Dilaudid Inj*) 1 mg IV Q2H PRN PRN Reason: PAIN Last Admin: 09/24/17 18:17 Dose: 1 mg Metronidazole/Sodium Chloride (Flagyl 500 Mg Ivpb*) 500 mg in 100 mls @ 100 mls /hr IVPB Q8H [facility] Last Admin: 09/24/17 14:35 Dose: 100 mls/hr Sodium Chloride (Ns 0.9% 1000 Ml*) 1,000 mls @ 125 mls/hr IV PER RATE [facility] Last Admin: 09/24/17 06:27 Dose: 125 mls/hr Ciprofloxacin/Dextrose (Cipro 400 Mg Ivpremix(*)) 400 mg in 200 mls @ 200 mls/ hr IVPB Q12H [facility] Last Admin: 09/24/17 08:54 Dose: 200 mls/hr Lorazepam (Ativan Inj*) 0.5 mg IV BEDTIME PRN PRN Reason: SLEEP Metoclopramide HCl (Reglan Iv*) 10 mg IV Q6H PRN PRN Reason: NAUSEA/VOMITING Last Admin: 09/24/17 18:27 Dose: 10 mg Ondansetron HCl (Zofran Inj*) 4 mg IV Q6H PRN PRN Reason: NAUSEA Last Admin: 09/24/17 06:59 Dose: 4 mg Pantoprazole Sodium (Protonix Iv*) 40 mg IV DAILY [facility] Last Admin: 09/24/17 08:53 Dose: 40 mg Vital Signs - 8 hr 09/24/17 09/24/17 09/24/17 11:53 14:32 14:43 Respiratory 16 16 16 Rate 09/24/17 09/24/17 18:17 18:26 Respiratory 16 16 Rate Oxygen Devices in Use Now: None Appearance: Alert, NAD Ears/Nose/Mouth/Throat: NL Teeth, Lips, Gums Neck: Trachea Midline Respiratory: Symmetrical Chest Expansion and Respiratory Effort, Clear to Auscultation Cardiovascular: NL Sounds; No Murmurs; No JVD, RRR Abdominal: - - diffusely tender across all quads, hypoactive BS Extremities: No Edema, No Clubbing, Cyanosis Neurological: Alert and Oriented x 3, NL Sensation, NL Gait Nutrition: Taking PO's, - - advanced to clears and tolerating Result Diagrams: 09/24/17 06:15 09/24/17 06:15 Additional Lab and Data: Lab Results 09/23/17 09/23/17 09/23/17 Range/Units 18:28 18:28 18:28 WBC 14.6 H (3.5-10.8) 10^3/ul RBC 4.88 (4.0-5.4) 10^6/ul Hgb 14.6 (14.0-18.0) g/dl Hct 43 (42-52) % MCV 88 (80-94) fL MCH 30 (27-31) pg MCHC 34 (31-36) g/dl RDW 14 (10.5-15) % Plt Count 286 (150-450) 10^3/ul MPV 7.8 (7.4-10.4) um3 Neut % (Auto) 84.6 H (38-83) % Lymph % (Auto) 9.4 L (25-47) % [place] % (Auto) 4.6 (0-7) % Eos % (Auto) 1.0 (0-6) % Baso % (Auto) 0.4 (0-2) % Absolute Neuts (auto) 12.3 H (1.5-7.7) 10^3/ul Absolute Lymphs (auto) 1.4 (1.0-4.8) 10^3/ul Absolute Monos (auto) 0.7 (0-0.8) 10^3/ul Absolute Eos (auto) 0.1 (0-0.6) 10^3/ul Absolute Basos (auto) 0.1 (0-0.2) 10^3/ul Absolute Nucleated RBC 0 10^3/ul Nucleated RBC % 0 Sodium 137 L (139-145) mmol/L Potassium 4.0 (3.5-5.0) mmol/L Chloride 104 (101-111) mmol/L Carbon Dioxide 26 (22-32) mmol/L Anion Gap 7 (2-11) mmol/L BUN 14 (6-24) mg/dL Creatinine 0.98 (0.67-1.17) mg/dL Est GFR ( Amer) 108.9 (>60) Est GFR (Non-Af Amer) 84.7 (>60) BUN/Creatinine Ratio 14.3 (8-20) Glucose 121 H (70-100) mg/dL Lactic Acid 1.2 (0.5-2.0) mmol/L Calcium 9.1 (8.6-10.3) mg/dL Total Bilirubin 0.50 (0.2-1.0) mg/dL AST 20 (13-39) U/L ALT 35 (7-52) U/L Alkaline Phosphatase 64 (34-104) U/L C-Reactive Protein 4.58 (< 5.00) mg/L Total Protein 6.9 (6.4-8.9) g/dL Albumin 4.2 (3.2-5.2) g/dL Globulin 2.7 (2-4) g/dL Albumin/Globulin Ratio 1.6 (1-3) Lipase 11 (11.0-82.0) U/L Urine Color Urine Appearance Urine pH (5-9) Ur Specific [place] (1.010-1.030) Urine Protein (Negative) Urine Ketones (Negative) Urine Blood (Negative) Urine Nitrate (Negative) Urine Bilirubin (Negative) Urine Urobilinogen (Negative) Ur Leukocyte Esterase (Negative) Urine Glucose (Negative) 09/23/17 Range/Units 19:18 WBC (3.5-10.8) 10^3/ul RBC (4.0-5.4) 10^6/ul Hgb (14.0-18.0) g/dl Hct (42-52) % MCV (80-94) fL MCH (27-31) pg MCHC (31-36) g/dl RDW (10.5-15) % Plt Count (150-450) 10^3/ul MPV (7.4-10.4) um3 Neut % (Auto) (38-83) % Lymph % (Auto) (25-47) % [place] % (Auto) (0-7) % Eos % (Auto) (0-6) % Baso % (Auto) (0-2) % Absolute Neuts (auto) (1.5-7.7) 10^3/ul Absolute Lymphs (auto) (1.0-4.8) 10^3/ul Absolute Monos (auto) (0-0.8) 10^3/ul Absolute Eos (auto) (0-0.6) 10^3/ul Absolute Basos (auto) (0-0.2) 10^3/ul Absolute Nucleated RBC 10^3/ul Nucleated RBC % Sodium (139-145) mmol/L Potassium (3.5-5.0) mmol/L Chloride (101-111) mmol/L Carbon Dioxide (22-32) mmol/L Anion Gap (2-11) mmol/L BUN (6-24) mg/dL Creatinine (0.67-1.17) mg/dL Est GFR ( Amer) (>60) Est GFR (Non-Af Amer) (>60) BUN/Creatinine Ratio (8-20) Glucose (70-100) mg/dL Lactic Acid (0.5-2.0) mmol/L Calcium (8.6-10.3) mg/dL Total Bilirubin (0.2-1.0) mg/dL AST (13-39) U/L ALT (7-52) U/L Alkaline Phosphatase (34-104) U/L C-Reactive Protein (< 5.00) mg/L Total Protein (6.4-8.9) g/dL Albumin (3.2-5.2) g/dL Globulin (2-4) g/dL Albumin/Globulin Ratio (1-3) Lipase (11.0-82.0) U/L Urine Color Yellow Urine Appearance Clear Urine pH 5.0 (5-9) Ur Specific [place] 1.016 (1.010-1.030) Urine Protein Negative (Negative) Urine Ketones Negative (Negative) Urine Blood Negative (Negative) Urine Nitrate Negative (Negative) Urine Bilirubin Negative (Negative) Urine Urobilinogen Negative (Negative) Ur Leukocyte Esterase Negative (Negative) Urine Glucose Negative (Negative) Diagnostic Imaging: Patient Name: JAIDA PATTERSON Medical Record#: [id number] Ordering Physician: Roosevelt Myrick MD Acct.#: [id number] : 1975 Age: 42 Sex: M Location: EMERGENCY DEPARTMENT Exam Date: 09/23/171810 ADM Status: REG ER Order Information: CT ABD/PEL W/O Accession Number: [id number] CPT: 63954 INDICATION: RIGHT groin and lower abdominal pain following lifting injury. COMPARISON: No relevant prior exams available on the [facility] PACS for comparison. TECHNIQUE: Multidetector CT images were obtained from the lung bases to the ischial tuberosities. Evaluation of the viscera is limited without IV contrast. Multiplanar reformation. REPORT: Unremarkable visualized inferior thorax. The liver, gallbladder, pancreas, and spleen are unremarkable. Small splenule at the splenic hilum. Medially directed diverticulum at the second segment of the duodenum without suggestion of inflammatory change. Unremarkable jejunum, ileum, and retrocecal appendix. Mild colonic diverticulosis. Perienteric inflammatory change at the level of the proximal segment of the sigmoid colon with a few foci of extra enteric gas and small volume of free pelvic fluid including along the LEFT pelvic sidewall and in the dependent portion. Negative for significant hernias. Normal adrenal glands. Unremarkable kidneys. Negative for obstructive uropathy. Unremarkable nondilated ureters and partially distended urinary bladder. Symmetric seminal vesicles. Negative for lymphadenopathy. Normal diameter abdominal aorta and iliac arteries. Partially decompressed inferior vena cava indicating lower volume state. Negative for suspicious osseous lesions. IMPRESSION: The constellation of findings is most consistent with acute diverticulitis of the proximal sigmoid colon with evidence for perforation with small foci of extra enteric gas and small volume of free fluid. No loculated abscess collection evident. Reassessment after therapy suggested to assess for resolution. <Electronically signed by Rex Valverde MD in [place]> 09/23/171914 Dictated By: Rex Valverde MD Dictated Date/Time: 09/23/171914 Transcribed Date/Time: 09/23/171907 Copy to: CC:Belkis Tejada [employer]; Roosevelt Myrick MD Imaging - [facility] Imaging - [facility] Imaging - [facility] [address] 1 of Assess/Plan/Problems-Billing Assessment: This is a 42 year old male patient that presents with abdominal pain, found to have diverticulitis with microperforation, being treated conservatively with bowel rest, fluids and pain control. - Patient Problems (1) Diverticulitis of intestine with perforation without abscess Code(s): K57.80 - DVTRCLI OF INTEST, PART UNSP, W PERF AND ABSCESS W/O BLEED SNOMED Code(s): 362646910 Comment: - Continue cipro and flagyl - Surgery following - Pain control - Tolerating clears - Add reglan and alternate with zofran PRN (2) Anxiety Code(s): F41.9 - ANXIETY DISORDER, UNSPECIFIED SNOMED Code(s): 71894743 Comment: - ativan as needed (3) Asthma Code(s): J45.909 - UNSPECIFIED ASTHMA, UNCOMPLICATED SNOMED Code(s): 907999978 Comment: - Nebs PRN (4) DVT prophylaxis Code(s): KZA9050 - SNOMED Code(s): 316807845 Comment: - Low risk, ambulatory - SCDs while in bed (5) Full code status Code(s): Z78.9 - OTHER SPECIFIED HEALTH STATUS SNOMED Code(s): 871158116 Status and Disposition: Remain inpatient until clear by surgery
[2017-09-25] MEDS: HYDROmorphone INJ* 2 MG/ML CARPUJECT SYRINGE IV PRN ×6 (00:53→21:32)
[2017-09-25] MEDS: NS 0.9% 1000 ML* 1,000 ML IV SCH ×3 (05:29→21:32)
[2017-09-25] MEDS: metroNIDAZOLE IV 500 MG/100ML* 500 MG/100 ML BAG IVPB SCH ×2 (06:01→13:59)
[2017-09-25] MEDS: Pantoprazole IV* 40 MG IV SCH (09:51)
[2017-09-25] MEDS: Ciprofloxacin 400MG IVPREMIX(* 400 MG/200 ML BAG IVPB SCH ×2 (09:51→21:48)
[2017-09-25] MEDS: Al Hydrox/Mg Hydrox/Simet LIQ* 30 ML UDC PO PRN (13:14)
--- NOTE | 2017-09-25 14:02 | PN ---
Progress Note - Progress Note Date of Service: 09/25/17 Note: Surgery Progress: S: Still having pain, though better than yesterday. Antonio clears. Passing flatus as well as 2 loose stools and one small formed BM. Pain seems to come and go. O: Vital Signs - 8 hr 09/25/17 09/25/17 09/25/17 07:33 07:36 11:31 Temperature 98.1 F 98.3 F Pulse Rate 79 81 Respiratory 18 18 20 Rate Blood Pressure 111/72 118/73 (mmHg) O2 Sat by Pulse 94 95 Oximetry 09/25/17 09/25/17 09/25/17 11:37 13:14 13:27 Temperature Pulse Rate Respiratory 16 18 18 Rate Blood Pressure (mmHg) O2 Sat by Pulse Oximetry Intake and Output Last 24 Hours 09/23/17 09/24/17 09/25/17 09/26/17 06:59 06:59 06:59 06:59 Intake Total 640 2860 320 Output Total 1300 350 Balance -660 2510 320 Weight 257 lb Intake: IV Fluids 200 1480 NS (0.9%) 1480 Oral 440 1380 320 Output: Urine 1300 350 Other: Estimated Void Large # Bowel Movements 0 0 # Voids 0 1 Gen: NAD Heart: reg Lungs: clear Abd: obese; mildly distended; soft; still moderate lower abd tenderness, but improved vs yesterday. Upper abd nontender. A: diverticulitis w/ micro perf, appears to be improving P: cont abx; would consider adv diet (full liqs, then d/c home on low residue), oral pain meds w/ poss d/c 09/26 if meets criteria. Would have him f/u w/ Dr. Amadro in 7-10 d. Will d/w Dr. Pratt
--- NOTE | 2017-09-25 16:14 | PN ---
Subjective Date of Service: 09/25/17 Interval History: patient seen and examined. Pain now localizing to LLQ rather than across abdomen. Denies n/v/d, denies fevers or chills. Tolerating CLD without issue. Objective Active Medications: Acetaminophen (Tylenol Tab*) 650 mg PO Q6H PRN PRN Reason: FEVER/PAIN Al Hydrox/Mg Hydrox/Simethicone (Maalox Plus*) 30 ml PO Q4H PRN PRN Reason: DYSPEPSIA Last Admin: 09/25/17 13:14 Dose: 30 ml Albuterol (Ventolin 2.5 Mg/3 Ml Neb.Lola*) 2.5 mg INH Q2H PRN PRN Reason: SOB/WHEEZING Hydromorphone HCl (Dilaudid Inj*) 1 mg IV Q2H PRN PRN Reason: PAIN Last Admin: 09/25/17 13:27 Dose: 1 mg Metronidazole/Sodium Chloride (Flagyl 500 Mg Ivpb*) 500 mg in 100 mls @ 100 mls /hr IVPB Q8H [facility] Last Admin: 09/25/17 13:59 Dose: 100 mls/hr Sodium Chloride (Ns 0.9% 1000 Ml*) 1,000 mls @ 125 mls/hr IV PER RATE [facility] Last Admin: 09/25/17 05:29 Dose: 125 mls/hr Ciprofloxacin/Dextrose (Cipro 400 Mg Ivpremix(*)) 400 mg in 200 mls @ 200 mls/ hr IVPB Q12H [facility] Last Admin: 09/25/17 09:51 Dose: 200 mls/hr Lorazepam (Ativan Inj*) 0.5 mg IV BEDTIME PRN PRN Reason: SLEEP Metoclopramide HCl (Reglan Iv*) 10 mg IV Q6H PRN PRN Reason: NAUSEA/VOMITING Last Admin: 09/24/17 18:27 Dose: 10 mg Ondansetron HCl (Zofran Inj*) 4 mg IV Q6H PRN PRN Reason: NAUSEA Last Admin: 09/24/17 06:59 Dose: 4 mg Pantoprazole Sodium (Protonix Iv*) 40 mg IV DAILY [facility] Last Admin: 09/25/17 09:51 Dose: 40 mg Vital Signs - 8 hr 09/25/17 09/25/17 09/25/17 11:31 11:37 13:14 Temperature 98.3 F Pulse Rate 81 Respiratory 20 16 18 Rate Blood Pressure 118/73 (mmHg) O2 Sat by Pulse 95 Oximetry 09/25/17 09/25/17 13:27 15:25 Temperature Pulse Rate Respiratory 18 18 Rate Blood Pressure (mmHg) O2 Sat by Pulse Oximetry Oxygen Devices in Use Now: None Eyes: No Scleral Icterus, PERRLA Ears/Nose/Mouth/Throat: Mucous Membranes Moist Neck: Trachea Midline Respiratory: Symmetrical Chest Expansion and Respiratory Effort, Clear to Auscultation Cardiovascular: NL Sounds; No Murmurs; No JVD, RRR Abdominal: - - tender LLQ, pos BS, 2 loose BMs and one formed Extremities: No Edema Neurological: Alert and Oriented x 3, NL Sensation, NL Gait Nutrition: Taking PO's, - - CLD Result Diagrams: 09/24/17 06:15 09/24/17 06:15 Additional Lab and Data: Lab Results 09/23/17 09/23/17 09/23/17 Range/Units 18:28 18:28 18:28 WBC 14.6 H (3.5-10.8) 10^3/ul RBC 4.88 (4.0-5.4) 10^6/ul Hgb 14.6 (14.0-18.0) g/dl Hct 43 (42-52) % MCV 88 (80-94) fL MCH 30 (27-31) pg MCHC 34 (31-36) g/dl RDW 14 (10.5-15) % Plt Count 286 (150-450) 10^3/ul MPV 7.8 (7.4-10.4) um3 Neut % (Auto) 84.6 H (38-83) % Lymph % (Auto) 9.4 L (25-47) % [place] % (Auto) 4.6 (0-7) % Eos % (Auto) 1.0 (0-6) % Baso % (Auto) 0.4 (0-2) % Absolute Neuts (auto) 12.3 H (1.5-7.7) 10^3/ul Absolute Lymphs (auto) 1.4 (1.0-4.8) 10^3/ul Absolute Monos (auto) 0.7 (0-0.8) 10^3/ul Absolute Eos (auto) 0.1 (0-0.6) 10^3/ul Absolute Basos (auto) 0.1 (0-0.2) 10^3/ul Absolute Nucleated RBC 0 10^3/ul Nucleated RBC % 0 Sodium 137 L (139-145) mmol/L Potassium 4.0 (3.5-5.0) mmol/L Chloride 104 (101-111) mmol/L Carbon Dioxide 26 (22-32) mmol/L Anion Gap 7 (2-11) mmol/L BUN 14 (6-24) mg/dL Creatinine 0.98 (0.67-1.17) mg/dL Est GFR ( Amer) 108.9 (>60) Est GFR (Non-Af Amer) 84.7 (>60) BUN/Creatinine Ratio 14.3 (8-20) Glucose 121 H (70-100) mg/dL Lactic Acid 1.2 (0.5-2.0) mmol/L Calcium 9.1 (8.6-10.3) mg/dL Total Bilirubin 0.50 (0.2-1.0) mg/dL AST 20 (13-39) U/L ALT 35 (7-52) U/L Alkaline Phosphatase 64 (34-104) U/L C-Reactive Protein 4.58 (< 5.00) mg/L Total Protein 6.9 (6.4-8.9) g/dL Albumin 4.2 (3.2-5.2) g/dL Globulin 2.7 (2-4) g/dL Albumin/Globulin Ratio 1.6 (1-3) Lipase 11 (11.0-82.0) U/L Urine Color Urine Appearance Urine pH (5-9) Ur Specific [place] (1.010-1.030) Urine Protein (Negative) Urine Ketones (Negative) Urine Blood (Negative) Urine Nitrate (Negative) Urine Bilirubin (Negative) Urine Urobilinogen (Negative) Ur Leukocyte Esterase (Negative) Urine Glucose (Negative) 09/23/17 Range/Units 19:18 WBC (3.5-10.8) 10^3/ul RBC (4.0-5.4) 10^6/ul Hgb (14.0-18.0) g/dl Hct (42-52) % MCV (80-94) fL MCH (27-31) pg MCHC (31-36) g/dl RDW (10.5-15) % Plt Count (150-450) 10^3/ul MPV (7.4-10.4) um3 Neut % (Auto) (38-83) % Lymph % (Auto) (25-47) % [place] % (Auto) (0-7) % Eos % (Auto) (0-6) % Baso % (Auto) (0-2) % Absolute Neuts (auto) (1.5-7.7) 10^3/ul Absolute Lymphs (auto) (1.0-4.8) 10^3/ul Absolute Monos (auto) (0-0.8) 10^3/ul Absolute Eos (auto) (0-0.6) 10^3/ul Absolute Basos (auto) (0-0.2) 10^3/ul Absolute Nucleated RBC 10^3/ul Nucleated RBC % Sodium (139-145) mmol/L Potassium (3.5-5.0) mmol/L Chloride (101-111) mmol/L Carbon Dioxide (22-32) mmol/L Anion Gap (2-11) mmol/L BUN (6-24) mg/dL Creatinine (0.67-1.17) mg/dL Est GFR ( Amer) (>60) Est GFR (Non-Af Amer) (>60) BUN/Creatinine Ratio (8-20) Glucose (70-100) mg/dL Lactic Acid (0.5-2.0) mmol/L Calcium (8.6-10.3) mg/dL Total Bilirubin (0.2-1.0) mg/dL AST (13-39) U/L ALT (7-52) U/L Alkaline Phosphatase (34-104) U/L C-Reactive Protein (< 5.00) mg/L Total Protein (6.4-8.9) g/dL Albumin (3.2-5.2) g/dL Globulin (2-4) g/dL Albumin/Globulin Ratio (1-3) Lipase (11.0-82.0) U/L Urine Color Yellow Urine Appearance Clear Urine pH 5.0 (5-9) Ur Specific [place] 1.016 (1.010-1.030) Urine Protein Negative (Negative) Urine Ketones Negative (Negative) Urine Blood Negative (Negative) Urine Nitrate Negative (Negative) Urine Bilirubin Negative (Negative) Urine Urobilinogen Negative (Negative) Ur Leukocyte Esterase Negative (Negative) Urine Glucose Negative (Negative) Microbiology and Other Data: Microbiology 09/23/17 22:00 Aerobic Blood Culture - Preliminary Blood Venous No Growth Day 1 Anaerobic Blood Culture - Preliminary No Growth Day 1 09/23/17 22:00 Aerobic Blood Culture - Preliminary Blood Venous No Growth Day 1 Anaerobic Blood Culture - Preliminary No Growth Day 1 Diagnostic Imaging: Patient Name: JAIDA PATTERSON Medical Record#: [id number] Ordering Physician: Roosevelt Myrick MD Acct.#: [id number] : 1975 Age: 42 Sex: M Location: EMERGENCY DEPARTMENT Exam Date: 09/23/171810 ADM Status: REG ER Order Information: CT ABD/PEL W/O Accession Number: [id number] CPT: 21633 INDICATION: RIGHT groin and lower abdominal pain following lifting injury. COMPARISON: No relevant prior exams available on the [facility] [place] for comparison. TECHNIQUE: Multidetector CT images were obtained from the lung bases to the ischial tuberosities. Evaluation of the viscera is limited without IV contrast. Multiplanar reformation. REPORT: Unremarkable visualized inferior thorax. The liver, gallbladder, pancreas, and spleen are unremarkable. Small splenule at the splenic hilum. Medially directed diverticulum at the second segment of the duodenum without suggestion of inflammatory change. Unremarkable jejunum, ileum, and retrocecal appendix. Mild colonic diverticulosis. Perienteric inflammatory change at the level of the proximal segment of the sigmoid colon with a few foci of extra enteric gas and small volume of free pelvic fluid including along the LEFT pelvic sidewall and in the dependent portion. Negative for significant hernias. Normal adrenal glands. Unremarkable kidneys. Negative for obstructive uropathy. Unremarkable nondilated ureters and partially distended urinary bladder. Symmetric seminal vesicles. Negative for lymphadenopathy. Normal diameter abdominal aorta and iliac arteries. Partially decompressed inferior vena cava indicating lower volume state. Negative for suspicious osseous lesions. IMPRESSION: The constellation of findings is most consistent with acute diverticulitis of the proximal sigmoid colon with evidence for perforation with small foci of extra enteric gas and small volume of free fluid. No loculated abscess collection evident. Reassessment after therapy suggested to assess for resolution. <Electronically signed by Rex Valverde MD in [place]> 09/23/171914 Dictated By: Rex Valverde MD Dictated Date/Time: 09/23/171914 Transcribed Date/Time: 09/23/171907 Copy to: CC:Belkis Tejada [employer]; Roosevelt Myrick MD Imaging - [facility] Imaging - [facility] Imaging - [facility] [address] [place] [address] Avenue 1 of Assess/Plan/Problems-Billing Assessment: This is a 42 year old male patient that presents with abdominal pain, found to have diverticulitis with microperforation, being treated conservatively with bowel rest, fluids and pain control. - Patient Problems (1) Diverticulitis of intestine with perforation without abscess Code(s): K57.80 - DVTRCLI OF INTEST, PART UNSP, W PERF AND ABSCESS W/O BLEED SNOMED Code(s): 290553330 Comment: - Continue cipro and flagyl - Surgery following - Pain control - Tolerating clears, will advance to full liquid tonight as pain is improving and he is afebrile - Add reglan and alternate with zofran PRN (2) Anxiety Code(s): F41.9 - ANXIETY DISORDER, UNSPECIFIED SNOMED Code(s): 15576747 Comment: - ativan as needed (3) Asthma Code(s): J45.909 - UNSPECIFIED ASTHMA, UNCOMPLICATED SNOMED Code(s): 235099375 Comment: - Nebs PRN (4) DVT prophylaxis Code(s): JVA4439 - SNOMED Code(s): 834823694 Comment: - Low risk, ambulatory - SCDs while in bed (5) Full code status Code(s): Z78.9 - OTHER SPECIFIED HEALTH STATUS SNOMED Code(s): 008885871 Status and Disposition: Remain inpatient, may be clear for DC tomorrow if tolerates FLD tonight and pain continues to improve/resolve.
[2017-09-26] MEDS: HYDROmorphone INJ* 2 MG/ML CARPUJECT SYRINGE IV PRN (01:03)
[2017-09-26] MEDS: metroNIDAZOLE IV 500 MG/100ML* 500 MG/100 ML BAG IVPB SCH (01:04)
--- NOTE | 2017-09-26 04:00 | CONS ---
CC: Torie Tejada NP; Dr. Zendejas; Bekah Fry NP * GASTROENTEROLOGY CONSULTATION NOTE: DATE OF CONSULT: 09/25/17 DATE OF ADMISSION: 09/23/17 HOSPITAL PROVIDERS: Bekah Fry NP; Ashkan Zendejas MD. PRIMARY CARE PROVIDER: Torie Mittal NP REASON FOR CONSULT: Acute sigmoid diverticulitis with microperforation. HISTORY OF PRESENT ILLNESS: Patient is a 42-year-old healthy male, who presented initially to [facility] a few days ago with complaints of right lower quadrant pain. CT of the abdomen revealed acute diverticulitis of the proximal sigmoid colon with evidence of perforation with small foci of extra -enteric gas and small volume of free fluid. No loculated abscess was seen at that time. Surgery was consulted for further evaluation and possible treatment. Since admission, patient has been improving significantly with conservative therapy. He was advanced to a full liquid diet today with minimal abdominal pain. Denies fevers or chills. He is currently on IV ciprofloxacin and metronidazole along with IV fluids. Gastroenterology was consulted for further recommendations and outpatient work-up. Patient denies prior history of diverticulitis. He admits to normal bowel movement daily and good appetite at home. Denies rectal bleeding. Denies family history of colorectal carcinoma. He has no previous history of colonoscopy and upper endoscopy. Denies GERD symptoms, dysphagia, odynophagia, hematemesis. PAST MEDICAL HISTORY: Denies. PAST SURGICAL HISTORY: Left shoulder repair x3, left knee arthroscopy. ALLERGIES: CEFEPIME, DAPTOMYCIN, cause fever; LINEZOLID, causes rash. FAMILY HISTORY: Mother and father are alive and healthy. Brother is healthy. Sister is developmentally disabled. SOCIAL HISTORY: Admits to tobacco use every 2 to 3 days. 6 to 10 beers on the weekend. Denies recreational drug use. He is with 2 children. REVIEW OF SYSTEMS: Review of systems on a 14-point scale have been reviewed. All pertinent positives and negatives have been noted above in the HPI. PHYSICAL EXAM: Temperature 98.3, pulse 80, respirations 16, O2 is 97 on room air, blood pressure 117/66. Generally, the patient is alert and oriented x3, in no acute distress. HEENT: Normocephalic, atraumatic. Extraocular muscles intact. Anicteric sclerae bilaterally. Neck is supple. Cardiovascular Exam: Regular rate and rhythm. Pulmonary: Clear to auscultation bilaterally. Abdominal Exam: Obese, positive bowel sounds, soft, mild tenderness to palpation in the left lower quadrant. No rebound, guarding, or rigidity. Extremities: No clubbing, cyanosis, or edema. Warm to touch. DIAGNOSTIC STUDIES/LAB DATA: WBC is 9.3, hemoglobin 13.1, hematocrit 38, platelets 254. Sodium 136, potassium 4.2, chloride 106, CO2 25, anion gap 5, BUN 12, creatinine 0.98. Lactic acid 1.2, calcium 8.4, total bilirubin 0.50, AST 20, ALT 35. Alkaline phosphatase 64, CRP 4.58. Total protein 6.9, albumin 4.2, globulin 2.7, lipase 11. UA is clear. ASSESSMENT AND PLAN: Sg is a pleasant 42-year-old male who presented to [facility] with acute sigmoid diverticulitis with microperforation. Surgery was consulted for further evaluation and treatment. During his hospital course he had been on bowel rest and managed conservatively. He was slowly advanced to a full liquid diet today and it tolerating his diet without abdominal pain. He is also ambulating without difficulty. He is currently on metronidazole and ciprofloxacin IV. Gastroenterology was consulted for further evaluation once acute symptoms have resolved. Patient has not had a colonoscopy in the past. He admits to a good appetite and stable weight. He has regular bowel movements without rectal bleeding. He will need a colonoscopy in approximately 6 to 8 weeks once he heals from his episode of diverticulitis to rule out inflammatory bowel disease versus colorectal carcinoma. He denies family history of colorectal carcinoma or inflammatory bowel disease. Risks and benefits were discussed and he is agreeable to this. Anticipated discharge date is tomorrow. He will follow up in approximately 4 to 6 weeks to schedule his colonoscopy. We will follow up with the patient as needed while he is in the hospital, otherwise we will see him as an outpatient for his followup visit. Please call us with any questions or concerns. Thank you, Dr. Zendejas and Bekah Fry for allowing us to participate in the care of your patient. If you should have any further questions or concerns, please do not hesitate to contact us. [id number]/[facility] #: [id number] HORACIO
[2017-09-26] MEDS: Pantoprazole IV* 40 MG IV SCH (08:50)
[2017-09-26] MEDS: Ciprofloxacin 400MG IVPREMIX(* 400 MG/200 ML BAG IVPB SCH (08:50)
[2017-09-26] MEDS: NS 0.9% 1000 ML* 1,000 ML IV SCH (08:58)
[2017-09-26] MEDS ORDERED: metroNIDAZOLE IV 500 MG/100ML* 500 MG/100 ML BAG IVPB SCH (09:00)
[2017-09-26 09:48] LABS: ABS Basophils 0 10^3/ul (0-0.2); ABS Eosinophils 0.2 10^3/ul (0-0.6); ABS Lymphocytes 0.8 10^3/ul (1.0-4.8); ABS Monocytes 0.6 10^3/ul (0-0.8); ABS Neutrophils 6.8 10^3/ul (1.5-7.7); ABS Nucleated RBC 0 10^3/ul; Eosinophil % 2.2 % (0-6); Hematocrit 40 % (42-52); Hemoglobin 13.5 g/dl (14.0-18.0); Lymphocyte % 9.1 % (25-47); Mean Corpuscular HGB Conc 34 g/dl (31-36); Mean Corpuscular Hemoglobin 30 pg (27-31); Mean Corpuscular Volume 89 fL (80-94); Mean Platelet Volume 7.6 um3 (7.4-10.4); Nucleated Red Blood Cells % 0.1; Platelet Count 287 10^3/ul (150-450); Red Blood Count 4.47 10^6/ul (4.0-5.4); Red Cell Distribution Width 14 % (10.5-15); White Blood Count 8.3 10^3/ul (3.5-10.8)
--- NOTE | 2017-09-26 12:54 | PN ---
Progress Note - Progress Note Date of Service: 09/26/17 Note: Surgery Progress: S: Less pain (has not req'd analgesic since 0100). Antonio full liq diet. Continues to pass flatus. Small BM. O: Intake and Output Last 24 Hours 09/24/17 09/25/17 09/26/17 09/27/17 06:59 06:59 06:59 06:59 Intake Total 640 2860 4417 0 Output Total 1300 350 Balance -660 2510 4417 0 Weight 257 lb Intake: IV Fluids 200 1480 1507 ABX - FLAGYL 757 NS (0.9%) 1480 750 IVPB 500 ABX - CIPROFLOXACIN 400 ABX - FLAGYL 100 Oral 440 1380 2410 0 Output: Urine 1300 350 Other: Estimated Void Large Large # Bowel Movements 0 0 0 # Voids 0 1 1 Gen: appears comfortable Heart: reg Lungs: clear ant Abd: +BS; still mildly distended; soft; still w/ moderate suprapubic and LLQ tenderness, similar to 09/25. Remainder nontender. A: likely acute diverticulitis w/ micro perf, improving P: was seen by GI w/ tentative plans for colonoscopy after 6-8 wks; he is likely to do fine w/ po abx (Cipro & Flagyl x 2addl wks) and transition to low fiber/low residue diet over the next few days (discussed w/ pt and ). He only needs to be seen by our office prn if worsening or persistent sx; likewise , f/u CT only if not following an expected clinical course of improvement. Patient has our contact info.
[2017-09-26 13:10] VITALS: BP 105/66
--- NOTE | 2017-09-26 21:52 | DS ---
CC: Belkis Tejada NP * DISCHARGE SUMMARY: DATE OF ADMISSION: 09/23/17 DATE OF DISCHARGE: 09/26/17 PRIMARY CARE PHYSICIAN: Belkis Tejada NP ATTENDING PHYSICIAN FOR THIS ADMISSION: Dr. Juan Pérez. MY ATTENDING FOR TODAY: Dr. Aiyana Santo.* (DICTATED BY CHACHO SOLANO NP) HOSPITAL COURSE: This is a very pleasant 42-year-old male patient, who presented to the emergency department with very sharp right lower quadrant pain radiating to the right groin. The patient also reported subjective fevers and chills with night sweats. The patient stated that he felt like he had to have a bowel movement, but could not and was quite constipated and again had additional radiating pain. The patient had CAT scan and was shown to have diverticulitis of the sigmoid colon with microperforation. The patient was admitted with IV fluids, started on Cipro and Flagyl IV as well and pain control. He was seen by Surgery, Dr. Rom Amador, who opted to continue the patient on conservative management with bowel rest, fluids, and pain control. The patient's diet was advanced to clears, and then to full liquids yesterday. He has tolerated well. He has not needed any pain medication since last night. The patient states that his pain has decreased from an 8/10 to about a 2/10, localized now to the left lower quadrant. He has had no further nausea, vomiting , chills, or fevers, nor any leukocytosis. The patient was seen by Surgery and also by GI. Surgery cleared the patient today for discharge with outpatient followup with GI, Dr. Jocelyn Mix, consulted on the patient, states that he needs to have colonoscopy in the next 6 to 8 weeks. The patient was stabilized for discharge today, 09/26/17. PHYSICAL EXAMINATION: Vital Signs: Today, blood pressure 105/66, heart rate 76 , respiratory rate 16, temperature 98.2, saturating at 95% on room air. HEENT: The patient is atraumatic, normocephalic. PERRLA with nonicteric sclerae. Neck is supple, nontender. No JVD noted. No thyromegaly appreciated. Cardiovascular: S1, S2 present with no murmurs, gallops or rubs noted. Rate and rhythm are regular. Lungs are clear bilaterally to auscultation with no wheezing, rhonchi or rales. Abdomen is soft, mildly tender, primarily localized to the left lower quadrant. No rebound or guarding noted. He has hyperactive bowel sounds in all 4 quadrants. He has had 3 loose stools and 1 formed stool in the last 24 hours. : Deferred. Musculoskeletal: There is no clubbing, no cyanosis, and no edema. He has +2 distal pulses palpable. He has a steady gait. Neurologic: Grossly intact with no focal deficits. Psychiatric : He is cooperative and appropriate. LABORATORY DATA/DIAGNOSTIC STUDIES: Today, CBC reveals WBC is 8.3, RBC is 4.47 , hemoglobin 13.5, hematocrit 40, platelets 287. Chemistry from 09/24/17, sodium 136, potassium 4.2, chloride 106, CO2 25, BUN 12, creatinine 0.98. GFR is 84.7, glucose 134, lactic acid 1.2. Liver function all within normal limits. Urinalysis with no acute infectious process. CAT scan was dated . CT of the abdomen and pelvis show constellation of findings most consistent with acute diverticulitis of the proximal sigmoid colon with evidence of perforation with a small foci of extra-enteric gas and small volume of free fluid. No loculated abscess collection is evident and also shows a partially distended urinary bladder. DISCHARGE DIAGNOSES: 1. Acute diverticulitis with microperforation. 2. History of anxiety. 3. History of asthma, not in exacerbation. MEDICATIONS AT THE TIME OF DISCHARGE: Include: 1. Cipro 500 mg q.12 hours x14 days. 2. Flagyl 500 mg q.8 hours also x14 days. 3. Ibuprofen as needed for pain. DISCHARGE DISPOSITION: The patient was discharged to home in stable condition in care of his . All questions were answered. The patient was instructed to follow up with Dr. Mix to schedule his colonoscopy in the next 6 to 8 weeks, Dr. Rom Amador as needed. If symptoms do not resolve, he may need repeat imaging and Dr. Tejada, his primary care provider ,as needed. Again, the patient was discharged in stable condition. Diet instructions as per Surgery. Progressing diet as tolerated. Currently, on full liquids to soft and tolerating well. He can start to transition to low - residue diet over the next 3 to 4 days, and then diet as tolerated. CHACHO SOLANO, HISTOTECHNOLOGIST [id number]/[facility] #: [id number] KALEIDA HEALTHEvie
== END 2017-09-26 16:15 | disposition home or self-care (01) | DRG 244 ==
LOC: ED 17:00 → MED 20:22
PROVIDERS: ADMIT Hospitalist; ATTEND Internal Medicine
DX: K57.20 Diverticulitis of large intestine with perforation and abscess without bleeding (principal); F41.9 Anxiety disorder, unspecified; J45.909 Unspecified asthma, uncomplicated; F17.290 Nicotine dependence, other tobacco product, uncomplicated; Z79.1 Long term (current) use of non-steroidal anti-inflammatories (NSAID); Z88.8 Allergy status to other drugs, medicaments and biological substances; Z81.0 Family history of intellectual disabilities
CPT/HCPCS: 36415; 74176; 80048; 80053; 81003; 83605; 83690; 85025; 86140; 87040; 99285; A9270-GY; J0744; J1170; J2405; J2765; J3490

== ENCOUNTER 2018-01-28 09:58 | Emergency (ER) | payer BC ==
[2018-01-28 10:46] VITALS: BP 122/78
--- NOTE | 2018-01-28 11:12 | UC ---
Back Pain HPI - HPI Summary HPI Summary: mid lower back pain x 2 days injury to his lower back as he went 4 wheeling and lift something heavy 2 days ago pain is on his lower back more on right that left , mild radiation to his right leg no fever , no chills, no numbness of lower ext. no urinary sx - History of Current Complaint Chief Complaint: UCBackPain Stated Complaint: LOWER BACK PAIN Time Seen by Provider: 01/28/18 10:40 Hx Obtained From: Patient Onset/Duration: Sudden Onset, Lasting Days - 2, Still Present Timing: Constant Severity Initially: Moderate Severity Currently: Moderate Pain Intensity: 7 Back Pain: Is Discrete @ - mid lower back Character: Aching, Throbbing Aggravating Factor(s): Movement, Lifting, Bending, Walking, Cough Alleviating Factor(s): Rest Associated Signs And Symptoms: Positive: Pain with Weight Bearing. Negative: Swelling, Redness, Bruising, Weakness, Numbness, Tingling, Abdominal Pain, Flank Pain, Bladder Incontinence, Weight Loss - Allergies/Home Medications Allergies/Adverse Reactions: Allergies Allergy/AdvReac Type Severity Reaction Status Date / Time linezolid [From Zyvox] Allergy Mild Rash Verified 01/28/18 10:41 Home Medications: Home Medications Naproxen Sodium [Aleve] 440 mg PO BID PRN 01/28/18 [History Confirmed 01/28/18] PMH/Surg Hx/FS Hx/Imm Hx GI/ History: Diverticulitis - Surgical History Surgical History: Yes Surgery Procedure, Year, and Place: 10/2011, LEFT [place]OULDER[place] [facility] [place]. 2005, LEFT KNEE, [facility] [place]. 2012 left shoulder - Family History Known Family History: Positive: Hypertension Negative: Cardiac Disease, Diabetes - Social History Alcohol Use: Occasionally Alcohol Amount: WEEKENDS Substance Use Type: None Smoking Status (MU): Current Every Day Smoker Type: Smokeless Tobacco Amount Used/How Often: 3-4 plugs a day Length of Time of Smoking/Using Tobacco: 19 YRS Have You Smoked in the Last Year: Yes - Immunization History Most Recent Influenza Vaccination: February 2016 Most Recent Pneumonia Vaccination: never Review of Systems Constitutional: Negative Skin: Negative Eyes: Negative ENT: Negative Respiratory: Negative Cardiovascular: Negative Is Patient Immunocompromised?: No All Other Systems Reviewed And Are Negative: Yes Physical Exam Triage Information Reviewed: Yes Appearance: Well-Appearing, Well-Nourished, Pain Distress Vital Signs: Initial Vital Signs Temp 97.4 F 01/28/18 10:42 Pulse 98 01/28/18 10:42 Resp 16 01/28/18 10:42 BP 122/78 01/28/18 10:42 Pulse Ox 97 01/28/18 10:42 Vital Signs Reviewed: Yes Eyes: Positive: Conjunctiva Clear ENT: Positive: Normal ENT inspection, Hearing grossly normal, Pharynx normal Neck exam: Normal Neck: Positive: Supple, Nontender, No Lymphadenopathy Respiratory: Positive: Chest non-tender, Lungs clear, Normal breath sounds, No respiratory distress Cardiovascular: Positive: RRR, No Murmur, Pulses Normal Neurological: Positive: Other: - lower back : no swelling, no erythema, mild diffuse tenderness, no muscle spasm pain with flexion and extension , DTR + 2 b /l lower ext Back Pain Course/Dx - Differential Dx/Diagnosis Provider Diagnoses: lower back strain Discharge - Sign-Out/Discharge Documenting (check all that apply): Patient Departure - Discharge Plan Condition: Stable Disposition: HOME Prescriptions: Naproxen [Naproxen 500 mg tab] 500 mg PO BID #20 tablet Patient Education Materials: Low Back Strain (ED) Forms: *Work Release Referrals: Belkis Tejada NP [Primary Care Provider] - 7 Days - Billing Disposition and Condition Condition: STABLE Disposition: Home
== END 2018-01-28 11:10 | disposition home or self-care (01) ==
LOC: UCCORT 09:58
DX: S39.012A Strain of muscle, fascia and tendon of lower back, initial encounter (principal); X50.0XXA Overexertion from strenuous movement or load, initial encounter; Y93.89 Activity, other specified; Y92.9 Unspecified place or not applicable; Z88.3 Allergy status to other anti-infective agents; Z88.6 Allergy status to analgesic agent; F17.210 Nicotine dependence, cigarettes, uncomplicated
CPT/HCPCS: 99212; G0463

== ENCOUNTER 2018-01-30 04:49 | Inpatient (IN) | payer BC ==
[2018-01-30] MEDS ORDERED: Morphine INJ* 2 MG/ML 1 ML SYRINGE (TWO MG - NEW SYRINGE VERSION) IV ONE (05:30)
[2018-01-30] MEDS ORDERED: Metoclopramide IV* 5 MG/ML 2 ML VIAL IV SLOW PU ONE (05:36)
[2018-01-30] MEDS ORDERED: NS 0.9% 1000 ML* 1,000 ML IV ONE (05:36)
--- NOTE | 2018-01-30 05:46 | ED ---
Abdominal Pain/Male - HPI Summary HPI Summary: This is adair Callahan documenting for attending Les Barkley MD. This patient is a 42 year old M presenting to [facility] with a chief complaint of abd pain since 1900 last night. The patient rates the pain 6/10 in severity. Patient reports diarrhea, difficultly urinating, and nausea. Patient denies fever. Hx diverticulitis. - History of Current Complaint Chief Complaint: EDAbdPain Stated Complaint: ABD PAIN Time Seen by Provider: 01/30/18 05:17 Hx Obtained From: Patient Onset/Duration: Lasting Days - 1, Still Present Timing: Constant Severity Initially: Moderate Severity Currently: Moderate Pain Intensity: 6 Pain Scale Used: 0-10 Numeric Location: Diffuse Radiates: No Associated Signs And Symptoms: Positive: Other - nausea - Allergies/Home Medications Allergies/Adverse Reactions: Allergies Allergy/AdvReac Type Severity Reaction Status Date / Time linezolid [From Zyvox] Allergy Mild Rash Verified 01/30/18 04:53 PMH/Surg Hx/FS Hx/Imm Hx Endocrine/Hematology History: Denies: Hx Diabetes, Hx Sickle Cell Disease, Hx Thyroid Disease Cardiovascular History: Denies: Hx Hypertension, Hx Pacemaker/ICD, Other Cardiovascular Problems/ Disorders Respiratory History: Denies: Hx Asthma, Hx Chronic Obstructive Pulmonary Disease (COPD), Other Respiratory Problems/Disorders GI History: Reports: Hx Gastroesophageal Reflux Disease - TAKES OTC MEDICATION Denies: Hx Ulcer History: Denies: Other Problems/Disorders Musculoskeletal History: Denies: Other Musculoskeletal History Sensory History: Denies: Hx Contacts or Glasses, Hx Hearing Aid Opthamlomology History: Denies: Hx Contacts or Glasses Neurological History: Denies: Other Neuro Impairments/Disorders Psychiatric History: Denies: Hx Panic Disorder - Surgical History Surgery Procedure, Year, and Place: 10/2011, LEFT SHOULDER, [facility] [place]. 03/28 LEFT SHOULDER. 2005, LEFT KNEE, [facility] [place]. 2012 left shoulder Hx Anesthesia Reactions: No Infectious Disease History: No Infectious Disease History: Denies: Hx Hepatitis, Hx Human Immunodeficiency Virus (HIV), Traveled Outside the in Last 30 Days - Family History Known Family History: Positive: Hypertension Negative: Cardiac Disease, Diabetes - Social History Alcohol Use: Weekly Alcohol Amount: WEEKENDS Substance Use Type: Reports: None Smoking Status (MU): Former Smoker Type: Smokeless Tobacco Amount Used/How Often: 3-4 plugs a day Length of Time of Smoking/Using Tobacco: 19 YRS Have You Smoked in the Last Year: Yes Review of Systems Negative: Fever Positive: Abdominal Pain, Diarrhea, Nausea Positive: dysuria All Other Systems Reviewed And Are Negative: Yes Physical Exam - Summary Physical Exam Summary: VITAL SIGNS: Reviewed. GENERAL: Patient is a well-developed and nourished male who is lying comfortable in the stretcher. Patient is not in any acute respiratory distress. HEAD AND FACE: No signs of trauma. No ecchymosis, hematomas or skull depressions. No sinus tenderness. EYES: PERRLA, EOMI x 2, No injected conjunctiva, no nystagmus. EARS: Hearing grossly intact. Ear canals and tympanic membranes are within normal limits. MOUTH: Oropharynx within normal limits. NECK: Supple, trachea is midline, no adenopathy, no JVD, no carotid bruit, no c- spine tenderness, neck with full ROM. CHEST: Symmetric, no tenderness at palpation LUNGS: Clear to auscultation bilaterally. No wheezing or crackles. CVS: Regular rate and rhythm, S1 and S2 present, no murmurs or gallops appreciated. ABDOMEN: Soft, TTP in RLQ. distention. No rebound no guarding, and no masses palpated. Bowel sounds are normal. EXTREMITIES: FROM in all major joints, no edema, no cyanosis or clubbing. NEURO: Alert and oriented x 3. No acute neurological deficits. Speech is normal and follows commands. SKIN: Dry and warm Triage Information Reviewed: Yes Vital Signs On Initial Exam: Initial Vitals Temp Pulse Resp BP Pulse Ox 97.4 F 114 18 127/76 97 01/30/18 04:51 01/30/18 04:51 01/30/18 04:51 01/30/18 04:51 01/30/18 04:51 Vital Signs Reviewed: Yes Diagnostics - Vital Signs Vital Signs Temp Pulse Resp BP Pulse Ox 01/30/18 05:12 101 97 01/30/18 05:10 104 123/76 94 01/30/18 04:51 97.4 F 114 18 127/76 97 - Laboratory Result Diagrams: 01/30/18 06:01 01/30/18 06:01 Lab Statement: Any lab studies that have been ordered have been reviewed, and results considered in the medical decision making process. - CT A/P CT CT Interpretation: Positive (See Comments) - IMPRESSION: Acute diverticulitis of the sigmoid colon with evidence for microperforation. No perienteric loculated abscess collection or resulting bowel obstruction. The site of diverticulitis is different than the site of diverticulitis on the September 23, 2017 exam. Follow-up after therapy warranted to assess for resolution. CT Interpretation Completed By: Radiologist - Report has been reviewed by provider and radiologist. Re-Evaluation - Re-Evaluation First Eval Re-Evaluation Time: 08:28 Change: Unchanged - Provider discussed results with pt. He reports pain is a 5/ 10; he asked for more pain meds. Abdominal Pain Fem Course/Dx - Course Assessment/Plan: This patient will be signed out to Dr. Gomez awaiting CT results - Diagnoses Provider Diagnoses: Diverticulitis Discharge - Sign-Out/Discharge Documenting (check all that apply): Sign-Out Patient Signing out patient TO: Jair Gomez - awaiting CT Results - Discharge Plan Condition: Stable Disposition: ADMITTED TO [facility]
[2018-01-30 06:22] LABS: ABS Basophils 0.1 10^3/ul (0-0.2); ABS Eosinophils 0 10^3/ul (0-0.6); ABS Lymphocytes 0.9 10^3/ul (1.0-4.8); ABS Monocytes 0.9 10^3/ul (0-0.8); ABS Neutrophils 14.9 10^3/ul (1.5-7.7); ABS Nucleated RBC 0 10^3/ul; Eosinophil % 0.3 % (0-6); Hematocrit 43 % (42-52); Hemoglobin 14.5 g/dl (14.0-18.0); Lymphocyte % 5.5 % (25-47); Mean Corpuscular HGB Conc 33 g/dl (31-36); Mean Corpuscular Hemoglobin 29 pg (27-31); Mean Corpuscular Volume 87 fL (80-94); Mean Platelet Volume 7.9 um3 (7.4-10.4); Nucleated Red Blood Cells % 0; Platelet Count 282 10^3/ul (150-450); Red Blood Count 4.97 10^6/ul (4.00-5.40); Red Cell Distribution Width 14 % (10.5-15); White Blood Count 16.9 10^3/ul (3.5-10.8)
[2018-01-30 06:26] LABS: Urine Appearance Clear; Urine Blood 1+ (Negative); Urine Color Yellow; Urine Ketones Negative (Negative); Urine Protein Negative (Negative); Urine Red Blood Cell 1+(3-5/hpf) (Absent); Urine Specific Gravity 1.024 (1.010-1.030); Urine Urobilinogen Negative (Negative); Urine White Blood Cell Absent (Absent)
[2018-01-30 06:32] LABS: INR 0.94 (0.77-1.02)
[2018-01-30 06:45] LABS: EGFR Non-African American 84.7 (>60)
[2018-01-30] MEDS ORDERED: Iohexol 300* (CONTRAST) 10 ML SDV IV ONE (06:56)
--- NOTE | 2018-01-30 07:56 | RAD ---
INDICATION: RIGHT lower quadrant pain and nausea since yesterday. History of diverticulitis. COMPARISON: September 23, 2017 CT TECHNIQUE: Multidetector CT images were obtained from the lung bases to the ischial tuberosities with 150 mL Omnipaque 300 IV contrast. No oral contrast administered. Multiplanar reformation. REPORT: VISUALIZED INFERIOR THORAX: Minimal linear atelectasis at the RIGHT lung base. LIVER / GALLBLADDER / PANCREAS / SPLEEN: No CT abnormality of the liver, gallbladder, pancreas, or spleen. Small splenule at the splenic hilum. ALIMENTARY TRACT: Medially projecting diverticulum at the second segment of the duodenum without evidence for acute inflammatory change. Negative for CT abnormality of the small bowel or infra cecal appendix. Moderate diverticulosis of the colon primarily involving the sigmoid colon with moderate perienteric inflammatory change along the antimesenteric margin corresponding with an inflamed diverticulum with evidence for microperforation with a few perienteric foci of free air and trace free pelvic fluid. Negative for a loculated perienteric abscess collection. Negative for hernias. MESENTERIC: Mesenteric lymph nodes are visualized measuring up to 0.8 cm short axis without significant interval change. ADRENAL / GENITOURINARY: Normal adrenal glands. Symmetric nephrograms and pyelograms. A few tiny hypodense cortical lesions of the RIGHT kidney are noted most likely representing benign cysts although too small to accurately characterize. Negative for suspicious renal lesions or hydronephrosis. Unremarkable nondilated ureters and urinary bladder. Symmetric seminal vesicles. RETROPERITONEAL: Negative for lymphadenopathy. VASCULAR: Normal diameter abdominal aorta and iliac arteries with only minimal atherosclerotic plaque. Physiologic distention of the IVC. BONES: Negative for suspicious osseous lesions. SOFT TISSUE: Unremarkable. IMPRESSION: #. Acute diverticulitis of the sigmoid colon with evidence for microperforation. No perienteric loculated abscess collection or resulting bowel obstruction. The site of diverticulitis is different than the site of diverticulitis on the September 23, 2017 exam. Follow-up after therapy warranted to assess for resolution.
[2018-01-30] MEDS ORDERED: metroNIDAZOLE IV 500 MG/100ML* 500 MG/100 ML BAG IVPB ONE (08:06)
[2018-01-30] MEDS ORDERED: Ciprofloxacin 400MG IVPREMIX(* 400 MG/200 ML BAG IVPB ONE (08:06)
[2018-01-30] MEDS ORDERED: NS 0.9% 1000 ML* 2,500 ML IV ONE (08:07)
[2018-01-30] MEDS ORDERED: Morphine VIAL* 10 MG/ML 1 ML VIAL IV ONE (08:29)
[2018-01-30] MEDS ORDERED: Acetaminophen TAB* 325 MG PO PRN (09:59)
[2018-01-30] MEDS ORDERED: Morphine VIAL* 4 MG/ML VIAL (1 ml vial) IV PRN (10:19)
[2018-01-30] MEDS: PROCHLORPERAZINE INJ 5 MG/ML 2 ML VIAL IV PRN (11:57)
[2018-01-30] MEDS: Ketorolac INJ* 30 MG/ML 1 ML VIAL IV PRN (14:02)
[2018-01-30] MEDS: metroNIDAZOLE IV 500 MG/100ML* 500 MG/100 ML BAG IVPB SCH ×2 (15:54→23:51)
--- NOTE | 2018-01-30 17:00 | PN ---
Progress Note - Progress Note Date of Service: 01/30/18 Note: Admiatted with diverticulitis with micro perf. I have examined pt, reviewed labs and CT scan I discussed with KOLBY Díaz and agree with his assessment and plan.
--- NOTE | 2018-01-30 21:15 | HP ---
CC: Belkis Tejada NP* ADMISSION HISTORY AND PHYSICAL: DATE OF ADMISSION/SURGERY: 01/30/18. ATTENDING SURGEON: Dr. Michael Silver* (dictated by KOLBY Snow). CHIEF COMPLAINT: Abdominal pain. HISTORY OF PRESENT ILLNESS: This is a generally healthy 42-year-old male, who was admitted in September of this year for an episode of diverticulitis. He completed his course of Cipro and Flagyl as an outpatient after an initial 3 day period of IV antibiotics. He improved and was eventually symptom free until last evening. Around 06:30 p.m., he noted lower abdominal colicky pain, which he describes as sharp. Pain was associated with nausea, but no vomiting. The patient denies fevers or chills, though he has had some sweats. He has had 1 episode of diarrhea since onset, but no blood per rectum. He has had some urinary urgency, but otherwise no dysuria, hematuria or increased frequency. His episode in September was his first. He did see gastroenterology in followup recently and was tentatively scheduled for colonoscopy on 03/05/18. PAST MEDICAL HISTORY: Negative for any significant active medical problems. 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 PAST SURGICAL HISTORY: His previous surgeries include: 1. Left shoulder surgery x3. 2. Left knee arthroscopy. CURRENT MEDICATIONS: None. DRUG ALLERGIES: CEFEPIME and ZYVOX (the patient states he developed bloodshot eyes and swollen lower extremities, but was unsure which of the antibiotics was the cause). His chart record also lists DAPTOMYCIN, but he is unaware of specific reaction. FAMILY HISTORY: Negative for anesthesia problems, bleeding, or clotting disorders. SOCIAL HISTORY: The patient is , he has 2 children. 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 He chews 1 can of tobacco every 2 to 3 days. He drinks 6 to 10 beers on a weekend. He does not use any recreational drugs. REVIEW OF SYSTEMS: General: No recent constitutional symptoms or acute illnesses other than described in the HPI. Cardiovascular: No chest pain or palpitations. No history of heart murmur. Respiratory: No history of asthma, chronic cough, or shortness of breath. GI: As per the HPI. : As per the HPI, no additions. Endocrine: No diabetes, or thyroid dysfunction. PHYSICAL EXAMINATION GENERAL: Well-nourished, well-developed somewhat obese male, in no acute distress. VITAL SIGNS: Height 5 feet 10 inches, weight 255 pounds. Temperature 97.4, blood pressure 110/61, pulse 91, respirations 18, room air saturation 94%. HEENT: Pupils equal and round, reactive. EOMs intact. No conjunctival pallor. Oropharynx: Teeth in good repair. No intraoral lesions. Mucous membranes moist. NECK: No thyromegaly or masses. No palpable cervical or supraclavicular lymphadenopathy. LUNGS: Clear to auscultation. No wheezes. HEART: Regular rate and rhythm. No murmur noted. ABDOMEN: Bowel sounds are present, obese, soft with some guarding. There is tenderness across the lower abdomen, greatest in the mid suprapubic area and right lower quadrant. There is no referred tenderness or rebound tenderness. The remainder of the abdomen is soft and nontender. No palpable inguinal hernias. GENITALIA: Not examined. RECTAL: Not done. EXTREMITIES: No edema. NEUROLOGICAL: Grossly intact SKIN: Warm and dry. No suspicious rashes or lesions noted. LABORATORY DATA: White blood cell count 16,900 with left shift, hemoglobin 14.5. Chemistry showed an elevated glucose of 148, lactic acid of 2.1, CRP of 104. Amylase and lipase were normal. Urinalysis was normal except of 1+ blood. CT scan of the abdomen and pelvis was ordered and IV contrast was reviewed directly with Dr. Silver, impression is that of sigmoid diverticulitis with evidence of micro-perforation. There is no abscess. IMPRESSION: Recurrent acute diverticulitis with micro-perforation. PLAN: IV antibiotics. The patient will also be seen and examined by Dr. Silver. He understands the potential need for urgent surgery if he does not improve and/or potential surgery on a more scheduled basis as this is his second significant episode in 4 months. The patient will discuss these issues with Dr. Silver. KOLBY SNOW [id number]/[facility] #: [id number] [facility] HOSPITALEvie
[2018-01-30] MEDS: oxyCODONE/Acetamin 5/325 MG* TAB PO PRN (21:33)
[2018-01-30] MEDS: Ciprofloxacin 400MG IVPREMIX(* 400 MG/200 ML BAG IVPB SCH (21:33)
[2018-01-30] MEDS: NS 0.9% 1000 ML* 1,000 ML IV SCH (21:38)
[2018-01-31 06:20] LABS: ABS Basophils 0 10^3/ul (0-0.2); ABS Eosinophils 0.1 10^3/ul (0-0.6); ABS Lymphocytes 0.5 10^3/ul (1.0-4.8); ABS Monocytes 0.8 10^3/ul (0-0.8); ABS Neutrophils 10.2 10^3/ul (1.5-7.7); ABS Nucleated RBC 0 10^3/ul; Eosinophil % 0.8 % (0-6); Hematocrit 38 % (42-52); Hemoglobin 12.7 g/dl (14.0-18.0); Lymphocyte % 4.4 % (25-47); Mean Corpuscular HGB Conc 34 g/dl (31-36); Mean Corpuscular Hemoglobin 30 pg (27-31); Mean Corpuscular Volume 89 fL (80-94); Mean Platelet Volume 7.7 um3 (7.4-10.4); Nucleated Red Blood Cells % 0; Platelet Count 211 10^3/ul (150-450); Red Blood Count 4.25 10^6/ul (4.00-5.40); Red Cell Distribution Width 14 % (10.5-15); White Blood Count 11.6 10^3/ul (3.5-10.8)
[2018-01-31] MEDS: NS 0.9% 1000 ML* 1,000 ML IV SCH (06:21)
[2018-01-31 06:41] LABS: EGFR Non-African American 87.8 (>60)
[2018-01-31] MEDS: oxyCODONE/Acetamin 5/325 MG* TAB PO PRN ×2 (07:58→15:53)
[2018-01-31] MEDS: metroNIDAZOLE IV 500 MG/100ML* 500 MG/100 ML BAG IVPB SCH ×2 (07:59→15:46)
--- NOTE | 2018-01-31 08:47 | PN ---
Progress Note - Progress Note Date of Service: 01/31/18 SOAP: Subjective:Hospital day #2 diverticulitis with microperf less pain today;hungry;passing flatus and loose stool;no nausea;voiding [] Objective:afeb;VSS;abd:+bs,obese;nondistended;tender lower abd right greater than left;no guarding;ext:nonder,no edema Laboratory Last Values WBC 11.6 10^3/ul (3.5-10.8) H 01/31/18 06:00 RBC 4.25 10^6/ul (4.00-5.40) 01/31/18 06:00 Hgb 12.7 g/dl (14.0-18.0) L 01/31/18 06:00 Hct 38 % (42-52) L 01/31/18 06:00 MCV 89 fL (80-94) 01/31/18 06:00 MCH 30 pg (27-31) 01/31/18 06:00 MCHC 34 g/dl (31-36) 01/31/18 06:00 RDW 14 % (10.5-15) 01/31/18 06:00 Plt Count 211 10^3/ul (150-450) 01/31/18 06:00 MPV 7.7 um3 (7.4-10.4) 01/31/18 06:00 Neut % (Auto) 87.8 % (38-83) H 01/31/18 06:00 Lymph % (Auto) 4.4 % (25-47) L 01/31/18 06:00 [place] % (Auto) 6.8 % (0-7) 01/31/18 06:00 Eos % (Auto) 0.8 % (0-6) 01/31/18 06:00 Baso % (Auto) 0.2 % (0-2) 01/31/18 06:00 Absolute Neuts (auto) 10.2 10^3/ul (1.5-7.7) H 01/31/18 06:00 Absolute Lymphs (auto) 0.5 10^3/ul (1.0-4.8) L 01/31/18 06:00 Absolute Monos (auto) 0.8 10^3/ul (0-0.8) 01/31/18 06:00 Absolute Eos (auto) 0.1 10^3/ul (0-0.6) 01/31/18 06:00 Absolute Basos (auto) 0 10^3/ul (0-0.2) 01/31/18 06:00 Absolute Nucleated RBC 0 10^3/ul 01/31/18 06:00 Nucleated RBC % 0 01/31/18 06:00 INR (Anticoag Therapy) 0.94 (0.77-1.02) 01/30/18 06:01 APTT 29.8 seconds (26.0-36.3) 01/30/18 06:01 Sodium 136 mmol/L (135-145) 01/31/18 06:00 Potassium 4.4 mmol/L (3.5-5.0) 01/31/18 06:00 Chloride 106 mmol/L (101-111) 01/31/18 06:00 Carbon Dioxide 25 mmol/L (22-32) 01/31/18 06:00 Anion Gap 5 mmol/L (2-11) 01/31/18 06:00 BUN 10 mg/dL (6-24) 01/31/18 06:00 Creatinine 0.95 mg/dL (0.67-1.17) 01/31/18 06:00 Est GFR ( Amer) 106.2 (>60) 01/31/18 06:00 Est GFR (Non-Af Amer) 87.8 (>60) 01/31/18 06:00 BUN/Creatinine Ratio 10.5 (8-20) 01/31/18 06:00 Glucose 136 mg/dL (70-100) H 01/31/18 06:00 Lactic Acid 2.1 mmol/L (0.5-2.0) H* 01/30/18 06:01 Calcium 8.3 mg/dL (8.6-10.3) L 01/31/18 06:00 Magnesium 1.8 mg/dL (1.9-2.7) L 01/30/18 06:01 Total Bilirubin 0.70 mg/dL (0.2-1.0) 01/30/18 06:01 AST 20 U/L (13-39) 01/30/18 06:01 ALT 37 U/L (7-52) 01/30/18 06:01 Alkaline Phosphatase 70 U/L (34-104) 01/30/18 06:01 C-Reactive Protein 104.31 mg/L (<8.01) H 01/30/18 06:01 Total Protein 6.9 g/dL (6.4-8.9) 01/30/18 06:01 Albumin 4.1 g/dL (3.2-5.2) 01/30/18 06:01 Globulin 2.8 g/dL (2-4) 01/30/18 06:01 Albumin/Globulin Ratio 1.5 (1-3) 01/30/18 06:01 Amylase 30 U/L (29-103) 01/30/18 06:01 Lipase < 10 U/L (11.0-82.0) L 01/30/18 06:01 Urine Color Yellow 01/30/18 06:01 Urine Appearance Clear 01/30/18 06:01 Urine pH 6.0 (5-9) 01/30/18 06:01 Ur Specific [place] 1.024 (1.010-1.030) 01/30/18 06:01 Urine Protein Negative (Negative) 01/30/18 06:01 Urine Ketones Negative (Negative) 01/30/18 06:01 Urine Blood 1+ (Negative) A 01/30/18 06:01 Urine Nitrate Negative (Negative) 01/30/18 06:01 Urine Bilirubin Negative (Negative) 01/30/18 06:01 Urine Urobilinogen Negative (Negative) 01/30/18 06:01 Ur Leukocyte Esterase Negative (Negative) 01/30/18 06:01 Urine WBC (Auto) Absent (Absent) 01/30/18 06:01 Urine RBC (Auto) 1+(3-5/hpf) (Absent) A 01/30/18 06:01 Urine Bacteria Absent (Absent) 01/30/18 06:01 Urine Glucose Negative (Negative) 01/30/18 06:01 [] Assessment:wbc down from 16.9 to 11.6;less pain [] Plan:continue clears and IV abx likely home over the weekend;Dr Silver recommends Augmentin 875mg q12h for 2 weeks(pt does not want oral Flagyl) []
[2018-01-31] MEDS: Ciprofloxacin 400MG IVPREMIX(* 400 MG/200 ML BAG IVPB SCH ×2 (10:54→23:20)
[2018-01-31] MEDS: Ketorolac INJ* 30 MG/ML 1 ML VIAL IV PRN ×2 (11:00→19:34)
[2018-01-31] MEDS: Ondansetron INJ* 2 MG/ML VIAL IV PRN (15:46)
[2018-01-31] MEDS: PROCHLORPERAZINE INJ 5 MG/ML 2 ML VIAL IV PRN (19:33)
[2018-02-01] MEDS: metroNIDAZOLE IV 500 MG/100ML* 500 MG/100 ML BAG IVPB SCH ×4 (00:28→23:42)
[2018-02-01] MEDS: NS 0.9% 1000 ML* 1,000 ML IV SCH ×3 (02:49→20:29)
[2018-02-01] MEDS: PROCHLORPERAZINE INJ 5 MG/ML 2 ML VIAL IV PRN (05:01)
--- NOTE | 2018-02-01 08:26 | PN ---
Progress Note - Progress Note Date of Service: 02/01/18 Note: Surgery Mr. Jolly says he is still having some pain in the low abdomen, he is trying to manage it with non-narcotic medicine. He c/o "lots of gas pains", and diarrhea. He has tolerated clear liquids. Vital Signs 01/31/18 01/31/18 01/31/18 09:55 11:50 15:21 Temperature 98.5 F 99.6 F Pulse Rate 90 90 Respiratory 16 16 18 Rate Blood Pressure 117/70 126/71 (mmHg) O2 Sat by Pulse 99 98 Oximetry 01/31/18 01/31/18 01/31/18 15:53 18:31 19:30 Temperature Pulse Rate Respiratory 16 16 19 Rate Blood Pressure (mmHg) O2 Sat by Pulse Oximetry 01/31/18 01/31/18 02/01/18 19:49 23:42 03:35 Temperature 98.7 F 98.7 F 98.2 F Pulse Rate 88 77 79 Respiratory 19 16 16 Rate Blood Pressure 121/74 125/65 108/63 (mmHg) O2 Sat by Pulse 96 96 95 Oximetry 02/01/18 02/01/18 07:23 08:00 Temperature 97.8 F Pulse Rate 79 Respiratory 18 18 Rate Blood Pressure 117/66 (mmHg) O2 Sat by Pulse 96 Oximetry Abd: good BS, non-tender except in the right low abd. There is no guarding or rebound. Intake & Output 01/31/18 02/01/18 02/01/18 22:59 06:59 14:59 Intake Total 2846 1919 Output Total 0 425 Balance 2846 1494 Intake: IV Fluids 1826 1119 NS 1826 1119 IVPB 620 300 ABX - CIPROFLOXACIN 410 200 ABX - FLAGYL 210 100 Oral 400 500 Output: Urine 0 425 Other: Date of Last Bowel 02/01/2018 Movement # Bowel Movements 2 Estimated Stool Amount Medium A/P: Continuing to improve on Cipro/Flagyl. Not ready to go home. Will advance diet, start oral pain meds including ibuprofen. Will offer Maalox with simethicone for gas pain.
[2018-02-01] MEDS: Al Hydrox/Mg Hydrox/Simet LIQ* 30 ML UDC PO PRN ×3 (08:52→23:48)
[2018-02-01] MEDS: Ciprofloxacin 400MG IVPREMIX(* 400 MG/200 ML BAG IVPB SCH ×2 (10:07→21:45)
[2018-02-01] MEDS: Ibuprofen TAB* 800 MG PO PRN ×2 (15:47→23:42)
[2018-02-02 04:29] VITALS: BP 114/68
[2018-02-02] MEDS: NS 0.9% 1000 ML* 1,000 ML IV SCH (05:14)
[2018-02-02] MEDS: Ondansetron INJ* 2 MG/ML VIAL IV PRN (05:38)
[2018-02-02] MEDS: metroNIDAZOLE IV 500 MG/100ML* 500 MG/100 ML BAG IVPB SCH (07:43)
[2018-02-02] MEDS: Al Hydrox/Mg Hydrox/Simet LIQ* 30 ML UDC PO PRN (08:46)
[2018-02-02] MEDS: PROCHLORPERAZINE INJ 5 MG/ML 2 ML VIAL IV PRN (08:46)
[2018-02-02] MEDS: Ciprofloxacin 400MG IVPREMIX(* 400 MG/200 ML BAG IVPB SCH (10:47)
--- NOTE | 2018-02-02 13:50 | PN ---
Progress Note - Progress Note Date of Service: 02/02/18 Note: Surgery (late entry--pt. seen at 8:30 AM) Mr. Jolly denied any new problems. He tolerated diet and feels ready to go home. He is anxious about the antibiotics, but rellieved that he does not have to take flagyl pills. He is having BMs that have increasingly solid components. Vital Signs 02/01/18 02/01/18 02/01/18 15:38 19:21 19:39 Temperature 99.0 F 98.8 F Pulse Rate 81 78 Respiratory 18 18 19 Rate Blood Pressure 119/71 123/74 (mmHg) O2 Sat by Pulse 98 97 Oximetry 02/01/18 02/02/18 02/02/18 23:37 03:52 07:42 Temperature 98.8 F 98.6 F 98.2 F Pulse Rate 73 71 73 Respiratory 18 20 12 Rate Blood Pressure 134/81 114/68 114/68 (mmHg) O2 Sat by Pulse 98 97 98 Oximetry 02/02/18 08:00 Temperature Pulse Rate Respiratory 18 Rate Blood Pressure (mmHg) O2 Sat by Pulse Oximetry Abd: good BS, soft, mildly tender in the right suprapubic area. There is no guarding or rebound. Intake & Output 02/01/18 02/02/18 02/02/18 22:59 06:59 14:59 Intake Total 322 4020 938 Output Total 400 Balance -78 4020 938 Intake: IV Fluids 2950 450 NS 2950 450 IVPB 320 128 ABX - CIPROFLOXACIN 210 ABX - FLAGYL 110 128 Oral 322 750 360 Output: Urine 400 A/P: Improving on abx. Can go home on oral abx. F/u as outpt. [facility]oster
== END 2018-02-02 10:30 | disposition home or self-care (01) | DRG 244 ==
LOC: ED 04:49 → OR 08:54 → SSU 10:31
PROVIDERS: ADMIT Surgery; ATTEND Surgery
DX: K57.20 Diverticulitis of large intestine with perforation and abscess without bleeding (principal); F17.220 Nicotine dependence, chewing tobacco, uncomplicated; Z88.1 Allergy status to other antibiotic agents; Z88.8 Allergy status to other drugs, medicaments and biological substances
CPT/HCPCS: 36415; 74177; 80048; 80053; 81003; 81015; 82150; 83605; 83690; 83735; 85025; 85610; 85730; 86140; 99284; A9270-GY; J0744; J0780; J1885; J2270; J2405; J2765; J3490; Q9967